=== PATIENT | female | born 1995 | race Caucasian/White ===

== ENCOUNTER 2017-08-09 11:26 | Emergency (ER) | payer OTHER ==
[2017-08-09] MEDS ORDERED: NA CHLORIDE 0.9% 1,000 ML ONE (12:59)
[2017-08-09] MEDS ORDERED: CLINDAMYCIN 900MG/D5W 900 MG/50 ML BAG IV ONE (12:59)
[2017-08-09] MEDS ORDERED: DEXAMETHASONE 10 MG/ML VIAL ONE (13:00)
[2017-08-09] MEDS ORDERED: ONDANSETRON 4 MG/2 ML VIAL ONE (13:01)
[2017-08-09] MEDS ORDERED: MORPHINE 10 MG/ML VIAL ONE (13:01)
[2017-08-09 13:31] LABS: Absolute Lymphocytes (CBC) 1.2 K/uL (0.7-4.9); Absolute Monocytes 0.6 K/uL (0.1-1.3); Absolute Neutrophil 5.2 K/uL (1.8-8.0); Basophils % 0.4 % (0-1.3); Eosinophils % 0.2 % (0-4.4); Hematocrit 42.6 % (36.0-45.0); Lymphocytes % 17.1 % (15.3-44.8); MCH 30.4 pg (27.0-35.0); MCV 88.5 fL (80-100); MPV 9.5 fL (7.6-11.3); Monocytes % 8.8 % (3.3-12.3); RBC Red Blood Cell Count 4.81 M/uL (3.86-4.86)
[2017-08-09 13:34] LABS: Bicarbonate 26 mEq/L (21-31); Glucose Level 98 mg/dL (65-120); Sodium Level 142 mEq/L (135-145)
[2017-08-09 13:37] LABS: ALT/SGPT 16 IU/L (10-60); AST/SGOT 17 IU/L (10-42); Albumin 4.2 g/dL (3.2-5.5); Alkaline Phosphatase 61 IU/L (42-121); BUN Blood Urea Nitrogen 9 mg/dL (6-20); Protein, Total 7.6 g/dL (6.0-8.3)
--- NOTE | 2017-08-09 14:49 | RAD REPORT ---
EXAM DESCRIPTION: CT - Soft Tissue Neck W/Contr CLINICAL HISTORY: Pain COMPARISON: None. TECHNIQUE All CT scans are performed using dose optimization technique as appropriate and may includ e automated exposure control or mA/KV adjustment according to patient size. FINDINGS: The left second mandibular molar demonstrates a large crown erosion as well as periapical lucency compatible with odontogenic infection. There is no definitive evidence of an adjacent odontog enic abscess. However, the surrounding perimandibular tissues are thickened and the fat is effaced al jewel the left floor of the mouth with several perimandibular soft lymph nodes present. Skin thickening and subcutaneous fat reticulation is seen along the left aspect of the jaw. No intrinsic or extrinsic neck mass seen. IMPRESSION: Odontogenic infection involving the left second molar is identified with perimandibular inflammatory changes. An abscess is not discretely identified.
--- NOTE | 2017-08-09 14:54 | ER ---
Nurse's Notes [facility] Name: Miracle Villareal Age: 21 yrs Sex: Female : 1995 Arrival Date: 08/09/2017 Time: 11:27 Bed 9 Private MD: Diagnosis: Dental infection. Facial swelling. Presentation: 08/09 11:31 Presenting complaint: Patient states: " I started having this swelling under my chin ph since Tuesday. I had a bad tooth but I've been on antibiotics but I'm still running a high fever." Swelling noted to underside of chin, pt reports fever TMAX 103, also reports vomiting. Transition of care: patient was not received from another setting of care. Onset of symptoms was August 09, 2017. Initial Sepsis Screen: Does the patient meet any 2 criteria? No. Patient's initial sepsis screen is negative. Does the patient have a suspected source of infection? Yes:. Care prior to arrival: Medication(s) given: Tylenol, 1 gram at 1000. 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 - Social history:: Smoking status: Patient/guardian denies using tobacco. Screenin:30 Abuse screen: Denies threats or abuse. Denies injuries from another. Nutritional aj1 screening: No deficits noted. Tuberculosis screening: No symptoms or risk factors identified. Assessment: 12:30 General: Appears in no apparent distress. uncomfortable, Behavior is calm, cooperative, aj1 appropriate for age. Pain: Complains of pain in neck and left submandibular area Pain does not radiate. Pain currently is 10 out of 10 on a pain scale. Neuro: Level of Consciousness is awake, alert, obeys commands, Oriented to person, place, time, situation, Moves all extremities. Full function Gait is steady, Speech is normal, swelling noted to left jaw area. Cardiovascular: Patient's skin is warm and dry. Respiratory: Airway is patent Respiratory effort is even, unlabored, Respiratory pattern is regular, symmetrical, Breath sounds are clear bilaterally. Denies shortness of breath. GI: No signs and/or symptoms were reported involving the gastrointestinal system. : No signs and/or symptoms were reported regarding the genitourinary system. EENT: swelling to left jaw. Derm: No signs and/or symptoms reported regarding the dermatologic system. Skin is pink, warm \\T\\ dry. normal. Musculoskeletal: Circulation, motion, and sensation intact. 13:31 Reassessment: Patient appears in no apparent distress at this time. No changes from aj1 previously documented assessment. Patient and/or family updated on plan of care and expected duration. Pain level reassessed. Patient is alert, oriented x 3, equal unlabored respirations, skin warm/dry/pink. 14:22 Reassessment: Patient appears in no apparent distress at this time. No changes from aj1 previously documented assessment. Patient and/or family updated on plan of care and expected duration. Pain level reassessed. Patient is alert, oriented x 3, equal unlabored respirations, skin warm/dry/pink. Vital Signs: 11:35 BP 116 / 98; Pulse 103; Resp 18; Temp 98.7(O); Pulse Ox 98% on R/A; Weight 74.84 kg; ph Height 5 ft. 7 in. (170.18 cm); Pain 8/10; 13:32 BP 113 / 80; Pulse 67; Resp 18; Pulse Ox 98% on R/A; aj1 14:22 BP 109 / 81; Pulse 59; Resp 18; Pulse Ox 100% on R/A; aj1 11:35 Body Mass Index 25.84 (74.84 kg, 170.18 cm) ph ED Course: 11:27 Patient arrived in ED. as 11:34 Triage completed. ph 11:35 Arm band placed on. ph 12:05 Adni Salinas MD is Attending Physician. ps1 12:30 Carina Mccauley, ANGIE is Primary Nurse. aj1 12:30 Patient has correct armband on for positive identification. Bed in low position. Call aj1 light in reach. 12:30 No provider procedures requiring assistance completed. aj1 13:00 Inserted saline lock: 22 gauge in right antecubital area, using aseptic technique. aj1 Blood collected. 14:10 CT completed. Patient tolerated procedure well. Patient moved to CT via wheelchair. sj Patient moved back from CT. 14:10 CT Soft Tissue Neck W/contr In Process Unspecified. EDMS 14:53 Miguel Dow DDS is Referral Physician. ps1 Administered Medications: 13:14 Drug: Decadron - Dexamethasone 10 mg Route: IVP; Site: right antecubital; aj1 15:07 Follow up: Response: No adverse reaction aj1 13:15 Drug: morphine 4 mg Route: IVP; Site: right antecubital; aj1 15:06 Follow up: Response: No adverse reaction aj1 13:15 Drug: Zofran 4 mg Route: IVP; Site: right antecubital; aj1 15:06 Follow up: Response: No adverse reaction aj1 13:16 Drug: Clindamycin 900 mg Route: IVPB; Infused Over: 30 mins; Site: right antecubital; aj1 15:06 Follow up: IV Status: Completed infusion; IV Intake: 50ml aj1 13:16 Drug: NS 0.9% 1000 ml Route: IV; Rate: 1 bolus; Site: right antecubital; aj1 15:06 Follow up: IV Status: Completed infusion; IV Intake: 1000ml aj1 15:07 Drug: TORadol 30 mg Route: IVP; Site: right antecubital; aj1 Intake: 15:06 IV: 50ml; Total: 50ml. aj1 15:06 IV: 1000ml; Total: 1050ml. aj1 Outcome: 14:53 Discharge ordered by . ps1 17:07 Patient left the ED. dm5 Signatures: Dispatcher [employer] EDPR Carina Mccauley RN RN aj1 Zulma Shankar RN RN dm5 Alberta Alarcon Amelia as Hall, Patricia, RN RN Andi Salinas MD MD ps1 Corrections: (The following items were deleted from the chart) 13:30 13:27 General: Appears in no apparent distress. uncomfortable, Behavior is calm, aj1 cooperative, appropriate for age, aj1 13:30 13:27 Pain: Complains of pain in neck and left submandibular area Pain does not aj1 radiate. Pain currently is 10 out of 10 on a pain scale. aj1 13:30 13:27 Neuro: Level of Consciousness is awake, alert, obeys commands, Oriented to aj1 person, place, time, situation, Moves all extremities. Full function Gait is steady, Speech is normal, swelling noted to left jaw area. aj1 : Cardiovascular: Patient's skin is warm and dry. aj1 aj1 : Respiratory: Airway is patent Respiratory effort is even, unlabored, Respiratory aj1 pattern is regular, symmetrical, Breath sounds are clear bilaterally. Denies shortness of breath aj1 : GI: No signs and/or symptoms were reported involving the gastrointestinal system. aj1 aj1 : : No signs and/or symptoms were reported regarding the genitourinary system. aj1aj1 : EENT: swelling to left jaw. aj1 aj1 : Derm: No signs and/or symptoms reported regarding the dermatologic system. Skin aj1 is pink, warm \\T\\ dry. normal, aj1 : Musculoskeletal: Circulation, motion, and sensation intact. aj1 aj1
--- NOTE | 2017-08-09 14:54 | EDPHYS ---
Physician Documentation [facility] Name: Miracle Villareal Age: 21 yrs Sex: Female : 1995 Arrival Date: 08/09/2017 Time: 11:27 Bed 9 Private MD: ED Physician Andi Salinas HPI: 08/09 12:31 This 21 yrs old Female presents to ER via Ambulatory with complaints of Neck ps1 Swelling. 12:31 The patient or guardian complains of hx of left molar pain. on Augmentin for ps1 previously. Now increased pain, swelling, in left submandibular space. Additionally has fever, difficulty eating, and nausea. Pain moderate. No remitting or exacerbating factors. Feels like it is getting worse.. 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 - Social history:: Smoking status: Patient/guardian denies using tobacco. ROS: 12:31 Constitutional: Negative for fever, chills, and weight loss, Eyes: Negative for injury, ps1 pain, redness, and discharge. 12:31 Cardiovascular: Negative for chest pain, palpitations, and edema, Respiratory: Negative for shortness of breath, cough, wheezing, and pleuritic chest pain, Abdomen/GI: Negative for abdominal pain, nausea, vomiting, diarrhea, and constipation, Back: Negative for injury and pain, MS/Extremity: Negative for injury and deformity, Skin: Negative for injury, rash, and discoloration, Neuro: Negative for headache, weakness, numbness, tingling, and seizure. 12:31 ENT: Positive for sore throat, Teeth pain 12:31 Neck: Positive for mass, swelling, swollen nodes, tenderness, of the left submandibular area. Exam: 12:31 Constitutional: This is a well developed, well nourished patient who is awake, alert, ps1 and in no acute distress. Head/Face: Normocephalic, atraumatic. Eyes: Pupils equal round and reactive to light, extra-ocular motions intact. Lids and lashes normal. Conjunctiva and sclera are non-icteric and not injected. Chest/axilla: Normal chest wall appearance and motion. Nontender with no deformity. No lesions are appreciated. Cardiovascular: Regular rate and rhythm. No gallops, murmurs, or rubs. Normal PMI, no JVD. No pulse deficits. Respiratory: Lungs have equal breath sounds bilaterally, clear to auscultation and percussion. No rales, rhonchi or wheezes noted. No increased work of breathing, no retractions or nasal flaring. Abdomen/GI: Soft, non-tender, with normal bowel sounds. No distension or tympany. No guarding or rebound. No evidence of tenderness throughout. MS/ Extremity: Pulses equal, no cyanosis. Neurovascular intact. Full, normal range of motion. Neuro: Awake and alert, GCS 15, oriented to person, place, time, and situation. Cranial nerves II-XII grossly intact. Sensory grossly intact. Psych: Awake, alert, with orientation to person, place and time. Behavior, mood, and affect are within normal limits. 12:31 ENT: Mouth: is normal, Posterior pharynx: peritonsillar mass, is not appreciated. 12:31 Neck: External neck: mass, of the left submandibular area, swelling, tenderness. Vital Signs: 11:35 BP 116 / 98; Pulse 103; Resp 18; Temp 98.7(O); Pulse Ox 98% on R/A; Weight 74.84 kg; ph Height 5 ft. 7 in. (170.18 cm); Pain 8/10; 13:32 BP 113 / 80; Pulse 67; Resp 18; Pulse Ox 98% on R/A; aj1 14:22 BP 109 / 81; Pulse 59; Resp 18; Pulse Ox 100% on R/A; aj1 11:35 Body Mass Index 25.84 (74.84 kg, 170.18 cm) ph MDM: 12:28 Patient medically screened. ps1 14:55 Data reviewed: vital signs, nurses notes, lab test result(s), radiologic studies. ED ps1 course: no definite abscess. Home with Clinda, t3, Medrol, Anaprox, and Zofran. Follow up with dentist BARRINGTON. Stable. . 08/09 12:26 Order name: CBC with Diff; Complete Time: 13:40 ps1 08/09 12:26 Order name: CMP; Complete Time: 13:38 ps1 08/09 12:26 Order name: Lactate; Complete Time: 13:38 ps1 08/09 12:26 Order name: CT Soft Tissue Neck W/contr; Complete Time: 14:51 ps1 Administered Medications: 13:14 Drug: Decadron - Dexamethasone 10 mg Route: IVP; Site: right antecubital; aj1 15:07 Follow up: Response: No adverse reaction aj1 13:15 Drug: morphine 4 mg Route: IVP; Site: right antecubital; aj1 15:06 Follow up: Response: No adverse reaction aj1 13:15 Drug: Zofran 4 mg Route: IVP; Site: right antecubital; aj1 15:06 Follow up: Response: No adverse reaction aj1 13:16 Drug: Clindamycin 900 mg Route: IVPB; Infused Over: 30 mins; Site: right antecubital; aj1 15:06 Follow up: IV Status: Completed infusion; IV Intake: 50ml aj1 13:16 Drug: NS 0.9% 1000 ml Route: IV; Rate: 1 bolus; Site: right antecubital; aj1 15:06 Follow up: IV Status: Completed infusion; IV Intake: 1000ml aj1 15:07 Drug: TORadol 30 mg Route: IVP; Site: right antecubital; aj1 Disposition: 08/09/17 14:53 Discharged to Home. Impression: Dental infection. Facial swelling. . - Condition is Stable. - Discharge Instructions: Dental Pain. - Prescriptions for chlorhexidine gluconate 0.12 % Mucous Membrane mouthwash - place 15 milliliter by MUCOUS MEMBRANE route 2 times per day after brushing teeth, swish in mouth for 30 seconds then spit out; 300 milliliter. Anaprox 275 mg Oral Tablet - take 1 tablet by ORAL route every 8 hours As needed; 30 tablet. Clindamycin HCl 300 mg Oral Capsule - take 1 capsule by ORAL route every 6 hours for 10 days; 40 capsule. Tylenol- Codeine #3 300-30 mg Oral Tablet - take 2 tablet by ORAL route every 6 hours As needed; 30 tablet. Zofran 4 mg Oral Tablet - take 1 tablet by ORAL route every 12 hours As needed; 20 tablet. Medrol ([place]) 4 mg Oral Tablets, Dose Pack - take 1 tablet by ORAL route as directed - follow package instructions; 1 packet. - Work release form, Medication Reconciliation Form, Thank You Letter, Antibiotic Education, Prescription Opioid Use form. - Follow up: Emergency Department; When: As needed; Reason: Fever > 102 F, Trouble breathing, Worsening of condition. Follow up: Miguel Dow DDS; When: 1 week; Reason: Recheck today's complaints. - Problem is an ongoing problem. - Symptoms have worsened. Signatures: Dispatcher [employer] Carina Kiser RN RN aj1 Zulma Shankar RN RN dm5 Maria Fernanda Tarango RN RN ph Andi Salinas MD MD ps1
[2017-08-09] MEDS ORDERED: KETOROLAC 30 MG/ML INJ ONE (15:02)
[2017-08-09 17:30] VITALS: TEMP 98.7
[2017-08-09 17:32] VITALS: BP 109/81; O2SAT 100
== END 2017-08-09 17:07 | disposition home or self-care (01) ==
LOC: ER 11:26
DX: K04.7 Periapical abscess without sinus (principal); R22.9 Localized swelling, mass and lump, unspecified; Z88.5 Allergy status to narcotic agent
CPT/HCPCS: 36415; 70491; 80053; 83605; 85025; 96361; 96365; 96366; 96375; 99284; J1100; J2405; J7030; Q9967

== ENCOUNTER 2019-02-20 11:51 | Day surgery (SDC) | payer BC ==
[2019-02-20] MEDS ORDERED: Ringers Lactate 1,000 ML IV ONE (12:05)
[2019-02-20 12:26] LABS: Absolute Lymphocytes (CBC) 2.1 K/uL (0.7-4.9); Hematocrit 39.7 % (36.0-45.0); Lymphocytes % 30.1 % (15.3-44.8); MPV 8.8 fL (7.6-11.3)
[2019-02-20] MEDS ORDERED: FENTANYL CITR 100 MCG/2 ML ONE ×2 (13:29→14:34)
[2019-02-20] MEDS ORDERED: MIDAZOLAM HCL 2 MG/2 ML INJ ONE (13:29)
[2019-02-20] MEDS ORDERED: PROPOFOL 200 MG/20 ML VIAL IV ONE (13:29)
[2019-02-20] MEDS ORDERED: LIDOCAINE 1% MPF 5 ML VIAL ONE (13:30)
[2019-02-20] MEDS ORDERED: ROCURONIUM 50 MG/5 ML VIAL IV ONE (13:30)
[2019-02-20] MEDS ORDERED: BUPIVACAINE 0.25% PF 10 ML VIAL ONE (13:46)
[2019-02-20] MEDS ORDERED: KETOROLAC 30 MG/ML INJ ONE (14:46)
[2019-02-20] MEDS ORDERED: ONDANSETRON 4 MG/2 ML VIAL ONE ×2 (14:47→18:05)
[2019-02-20] MEDS ORDERED: dexAMETHasone 4 MG/ML VIAL ONE (14:47)
[2019-02-20] MEDS ORDERED: GLYCOPYRROLATE 0.2 MG/ML SYR ONE (14:52)
[2019-02-20] MEDS ORDERED: NEOSTIGMINE 1 MG/ML -10 ML VIAL ONE (14:52)
[2019-02-20] MEDS: HYDROMORPHONE HCL 1 MG/ML INJ ONE ×4 (15:49→16:11)
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
[2019-02-20] MEDS ORDERED: HYDROCODONE/APAP 5/325 MG TAB ONE (16:54)
[2019-02-20 17:03] VITALS: TEMP 97.4
[2019-02-20] MEDS ORDERED: IBUPROFEN 200 MG TAB PO ONE (18:00)
[2019-02-20] MEDS ORDERED: IBUPROFEN 400 MG TAB ONE (18:00)
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
[2019-02-20 18:41] VITALS: BP 106/64; O2SAT 97
--- NOTE | 2019-02-21 02:07 | OP ---
Date of Procedure: 02/20/2019 Surgeon: Kya Cardenas MD Negative Cleaner: Jimena Jonas M.D. Preoperative Diagnosis: Pelvic pain and left ovarian cyst, possible torsion. Postoperative Diagnoses: Pelvic pain, left ovarian cyst. No evidence of any acute torsion. Specimens: Left ovarian cyst. Complications: No complications. Drains: No drains. Condition: The patient's condition is stable. Indications: The patient was consented and taken to the OR for a diagnostic laparoscopy to rule out torsion, taken back to the OR. No antibiotics were indicated. Patient was placed in a supine fashio n on the operating table. General anesthesia given and placed in the dorsal lithotomy position. Arm s were tucked by the side. Abdomen, vulva, vagina, and perineum were prepped and draped in a sterile fashion. Adnexal masses palpable on the left side, the right was unremarkable. Speculum was placed to expose the cervix. Anterior lip grasped with 2 Allis clamps. Attempt was mad e to place the diagnostic uterine manipulator, but this was not possible because the uterus appeared to be retroflexed and it was somewhat difficult to advance the manipulator. I did not also have dila tors, so later on after the scope was placed, came back down and used the cervical dilators to open u p to 14-Bulgarian and then was I was able to slide the uterine manipulator in there and this was fixed i n place. The bladder was drained. No Good was left in place prior to the procedure. A 1 cm infraumbilical incision was made with a scalpel. The old scar for the appendectomy was used a nd scar was taken down. Fascia was incised, picked up with 2 Kochers on each side and stitches with 0 Vicryl were placed on each side. Abelino introduced after entering the peritoneal cavity bluntly an d placing S retractors. Once the site of entry was checked through the Abelino and was unremarkable, a 5 mm left lower quadrant and 5 mm suprapubic ports were placed under direct vision. Then, once the uterine manipulator was fixed in place, the surgery was started. The right ovary and tube completel y unremarkable, left tube completely unremarkable. No evidence of any endometriosis after systematic examination of the pelvic, peritoneum, and the anterior cul-de-sac, posterior cul-de-sac, bladder wa lls and suspected lesion on the right lateral wall. However, on visualizing this with a 30-degree le ns, I did not see any. Then on the left ovary, there was a 5-6 cm cyst, which appeared to be suspici ous for teratoma, but once a monopolar needle was used to make at least a 5 cm incision on the ovaria n capsule. The cyst cavity was entered, the fluid was drained, it was clear and yellow. The cyst wal l was thin, it was completely removed without any problems. Once the cyst wall was removed, a 3-0 Mo nocryl stitch was placed in a buried [id number] fashion and the tails cut very short. Interceed was wrapped around this and once this was done, no other etiology was found in the pelvic c avity, so the scope was removed. The appendix was absent. Ports were removed under direct vision an d injecting Marcaine there and then fascia of the port. Once the fascia was closed with 0 Vicryl sut ures, then this was injected with Marcaine as well as subcutaneous tissues and simple 4-0 Vicryl inte rrupted were placed to close the skin incisions. The manipulator was removed. There was no Good. Instrument, needle, and sponge counts were done and were correct at the end of the case. The patient tolerated the procedure well. She will follow up with me in 3 weeks. CLINT/KATHE Voice ID: [id number] Report ID: [id number]
--- OUTSIDE RECORDS SUMMARY | 2019-03-04 15:17 | XMS REPORT ---
:1995 [facility] Address [address] [place] [address] [place] [id number] Care Team Providers Name Role Phone Unavailable Unavailable Unavailable Problems This patient has no known problems. Allergies, Adverse Reactions, Alerts This patient has no known allergies or adverse reactions. Medications This patient has no known medications.
== END 2019-02-20 18:41 | disposition home or self-care (01) ==
LOC: OR 11:51
PROVIDERS: ATTEND Specialist
PROC: 0UB14ZZ Excision of Left Ovary, Percutaneous Endoscopic Approach (ICD-10-PCS; principal; 2019-02-20 13:30)
DX: N83.02 Follicular cyst of left ovary (principal); R10.2 Pelvic and perineal pain; Z88.6 Allergy status to analgesic agent
CPT/HCPCS: 85025; 36415; 81025; 88305; 58662; J2704; J2710; J2250; J3010 ×2; J1170 ×2; J7120; J2405 ×2

== ENCOUNTER 2019-10-23 21:12 | Emergency (ER) | payer BC ==
--- OUTSIDE RECORDS SUMMARY | 2019-10-23 21:43 | XMS REPORT | Summary of Care ---
:1995 Author Organization [facility] Address [address] [place] [address] Care Team Providers Name Role Phone Pcp, Patient Does Not Have A Primary Care Provider +1-000-00 0-0000 Reason for Visit Reason Comments Exposure asymptomatic- covid Encounter Details Date Type Department Care Team Description 10/16/2019 Laboratory Only [facility] Family Rhonda, JAMES Torres [address] [place] [address] [place] [address] Suspected Covid-19 [facility] Lab, Adc Fam Pob I Virus Infection [address] [place] [address] (Primary D x) [place] [address] Allergies Not on Filedocumented as of this encounter (statuses as of 10/16/2019) Medications Not on filedocumented as of this encounter (statuses as of 10/16/2019) Active Problems Not on filedocumented as of this encounter (statuses as of 10/16/2019) Social History Tobacco Use Types Packs/Day Years Used Date Never Assessed Sex Assigned at Date Recorded Not on file Job Start Date Occupation Industry Not on file Not on file Not on file Travel History Travel Start Travel End No recent travel history available. COVID-19 Exposure Response Date Recorded In the last month, have you been in contact with Yes 10/16/2019 3:21 PM CDT someone who was confirmed or suspected to have Coronavirus / COVID-19? documented as of this encounter Last Filed Vital Signs Not on filedocumented in this encounter Plan of Treatment Name Type Priority Associated Diagnoses Order S chedule COVID-19 (PCR MOLECULAR LAB Routine Suspected Covid-1 9 Virus Expected: 10/16/2019, TESTING) Infection Expires: 2020 Health Maintenance Due Date Last Done Comments VARICELLA VACCINES (1 of 2 - 10/12/1995 2-dose childhood series) DTaP,Tdap,and Td Vaccines (1 - 2005 Tdap) HPV VACCINES (1 - Female 2-dose 2005 series) Depression Screening 2006 PAP SMEAR 10/12/2015 INFLUENZA VACCINE (Season Ended) 2019 PNEUMOCOCCAL 0-64 YEARS COMBINED Aged Out No longer eligible based on SERIES patient's age to complete this topic documented as of this encounter Results Not on filedocumented in this encounter Visit Diagnoses Diagnosis Suspected Covid-19 Virus Infection - Julianna nicole documented in this encounter Insurance Payer Benefit Plan Subscriber ID Effective Dates Phone Address Type / Group [facility] [id number] 2018-[place] [phone] [address] PPO/POS [facility] [id number] [place] [address] documented as of this encounter
--- OUTSIDE RECORDS SUMMARY | 2019-10-23 21:43 | XMS REPORT | Summary of Care ---
:1995 Author Organization [facility] Address [address] [place] [address] Care Team Providers Name Role Phone Pcp, Patient Does Not Have A Primary Care Provider +1-000-00 0-0000 Reason for Visit Reason Comments UPPER RESPIRATORY INFECTION Encounter Details Date Type Department Care Team Description 10/18/2019 Telephone [facility] [employer] Family Pob1, Acute Care UPPER RESPIRATORY Medicine - [facility] INFECTION [address] [place] [address] Allergies Not on Filedocumented as of this encounter (statuses as of 10/18/2019) Medications Not on filedocumented as of this encounter (statuses as of 10/18/2019) Active Problems Not on filedocumented as of this encounter (statuses as of 10/18/2019) Social History Tobacco Use Types Packs/Day Years [...] filedocumented in this encounter Plan of Treatment Health Maintenance Due Date Last Done Comments [...] Results Not on filedocumented in this encounter Insurance Payer Benefit Plan Subscriber ID Effective Dates Phone Address Type / Group [facility] [id number] 2018-[place] [phone] [address] PPO/POS [facility] [id number] [place] [address] documented as of this encounter
--- OUTSIDE RECORDS SUMMARY | 2019-10-23 21:43 | XMS REPORT | Continuity of Care Document ---
:1995 Author Organization [facility] t Address [address] [place] [address] Care Team Providers Name Role Phone Pob1, Care Clinic Attending Clinician Unavailable Lab, Fam Pob I Attending Clinician Unavailable Problems This patient has no known problems. Allergies, Adverse Reactions, Alerts This patient has no known allergies or adverse reactions. Medications This patient has no known medications. Procedures This patient has no known procedures. Encounters Start End Encounter Admission Attending Care Care Encounter Source Date/Time Date/Time Type Type Clinicians Facility Department ID 2019-10-18 2019-10-18 Telephone Pob1, Acute [facility] [id number] 00:00:00 00:00:00 Care [facility] [id number] [place] [id number] Professio [phone] nal [address] 2019-10-16 2019-10-16 Laboratory Lab, [facility] [id number] 15:20:01 15:40:01 Only Fam Pob I Health [id number] [place] [id number] Professio [phone] [address]al [address] Results This patient has no known results.
--- OUTSIDE RECORDS SUMMARY | 2019-10-23 21:43 | XMS REPORT | Summary of Care ---
:1995 Author Organization [facility] Address [address] [place] [address] Care Team Providers Name Role Phone Pcp, Patient Does Not Have A Primary Care Provider +1-000-00 0-0000 Reason for Visit Reason Comments Exposure asymptomatic- covid Encounter Details Date Type Department Care Team Description 10/16/2019 Laboratory Only [facility] Family Rhonda, JAMES Torres [address] [place] [address] [place] [address] Suspected Covid-19 [facility] Lab, Adc Fam Pob I Virus Infection [address] [place] [address] (Primary D x) [place] [address] Allergies Not on Filedocumented as [...] Effective Dates Phone Address Type / Group [facility] [id number] 2018-[place] [phone] [address] PPO/POS [facility] [id number] [place] [address] documented as of this encounter
[2019-10-23] MEDS ORDERED: METOCLOPRAMIDE 10 MG/2mL INJ ONE (22:20)
[2019-10-23] MEDS ORDERED: DIPHENHYDRAMINE 50 MG/ML VIAL ONE (22:20)
[2019-10-23] MEDS ORDERED: NA CHLORIDE 0.9% 1,000 ML ONE (22:20)
--- NOTE | 2019-10-23 23:25 | EDPHYS ---
Physician Documentation [facility] Name: Miracle Stone Age: 24 yrs Sex: Female : 1995 Arrival Date: 10/23/2019 Time: 21:15 Bed 24 Private MD: ED Physician Hakeem Park HPI: 10/22 21:48 This 24 yrs old Female presents to ER via Ambulatory with complaints of Fever.jr8 21:48 The patient reports fever, not measured (subjective). Onset: The symptoms/episode jr8 began/occurred acutely, 2 day(s) ago. Modifying factors: The patient has had contact with sick husbands family. Associated signs and symptoms: Pertinent positives: arthralgias, chills, cough, headache. Severity of symptoms: At their worst the symptoms were moderate in the emergency department the symptoms are unchanged. The patient has not experienced similar symptoms in the past. The patient has not recently seen a physician. Historical: - Allergies: 21:25 Tramadol HCl; ll1 - PSHx: 21:25 Appendectomy; ; Knee surgery; ll1 - Immunization history:: Adult Immunizations up to date. - Social history:: Patient uses alcohol, only on a social basis. Patient/guardian denies using street drugs, tobacco products, Smoking status: Patient denies any tobacco usage or history of. ROS: 21:48 Eyes: Negative for injury, pain, redness, and discharge, ENT: Negative for injury, jr8 pain, and discharge, Neck: Negative for injury, pain, and swelling, Cardiovascular: Negative for chest pain, palpitations, and edema, Respiratory: Negative for shortness of breath, cough, wheezing, and pleuritic chest pain, Abdomen/GI: Negative for abdominal pain, nausea, vomiting, diarrhea, and constipation, Back: Negative for injury and pain, MS/Extremity: Negative for injury and deformity, Skin: Negative for injury, rash, and discoloration. 21:48 Constitutional: Positive for body aches, chills, fatigue, fever. 21:48 Neuro: Positive for headache. Exam: 21:48 Eyes: Pupils equal round and reactive to light, extra-ocular motions intact. Lids and jr8 lashes normal. Conjunctiva and sclera are non-icteric and not injected. Cornea within normal limits. Periorbital areas with no swelling, redness, or edema. ENT: Nares patent. No nasal discharge, no septal abnormalities noted. Tympanic membranes are normal and external auditory canals are clear. Oropharynx with no redness, swelling, or masses, exudates, or evidence of obstruction, uvula midline. Mucous membranes moist. Neck: Trachea midline, no thyromegaly or masses palpated, and no cervical lymphadenopathy. Supple, full range of motion without nuchal rigidity, or vertebral point tenderness. No Meningismus. Cardiovascular: Regular rate and rhythm with a normal S1 and S2. No gallops, murmurs, or rubs. Normal PMI, no JVD. No pulse deficits. Respiratory: Lungs have equal breath sounds bilaterally, clear to auscultation and percussion. No rales, rhonchi or wheezes noted. No increased work of breathing, no retractions or nasal flaring. Abdomen/GI: Soft, non-tender, with normal bowel sounds. No distension or tympany. No guarding or rebound. No evidence of tenderness throughout. Back: No spinal tenderness. No costovertebral tenderness. Full range of motion. Skin: Warm, dry with normal turgor. Normal color with no rashes, no lesions, and no evidence of cellulitis. MS/ Extremity: Pulses equal, no cyanosis. Neurovascular intact. Full, normal range of motion. Neuro: Awake and alert, GCS 15, oriented to person, place, time, and situation. Cranial nerves II-XII grossly intact. Motor strength 5/5 in all extremities. Sensory grossly intact. Cerebellar exam normal. Normal gait. Vital Signs: 21:23 BP 161 / 92; Pulse 70; Resp 18; Temp 98.4; Pulse Ox 99% ; ll1 23:40 BP 107 / 65; Pulse 68; Resp 18; Temp 98.2; Pulse Ox 99% ; ea MDM: 21:26 Patient medically screened. jr8 23:23 Data reviewed: vital signs, nurses notes, and as a result, I will discharge patient. jr8 Data interpreted: Pulse oximetry: on room air is 99 %. Interpretation: normal. Counseling: I had a detailed discussion with the patient and/or guardian regarding: the historical points, exam findings, and any diagnostic results supporting the discharge/admit diagnosis, the need for outpatient follow up, a family practitioner, to return to the emergency department if symptoms worsen or persist or if there are any questions or concerns that arise at home. Response to treatment: the patient's symptoms have markedly improved after treatment, patient is well hydrated. ED course: Pain markedly decreased. Will send home to continue to isolate. Knows to wait until swab returns. 10/22 21:46 Order name: COVID-19 jr8 10/22 21:46 Order name: IV; Complete Time: 22:08 jr8 Administered Medications: 22:28 Drug: NS 0.9% 1000 ml Route: IV; Rate: 1000 ml; Site: right antecubital; ea 23:53 Follow up: Response: No adverse reaction; IV Status: Completed infusion; IV Intake: ea 1000ml 22:28 Drug: Reglan 10 mg Route: IVP; Site: right antecubital; ea 23:53 Follow up: Response: No adverse reaction ea 22:28 Drug: Benadryl 25 mg Route: IVP; Site: right antecubital; ea 23:53 Follow up: Response: No adverse reaction ea 23:46 Drug: TORadol - Ketorolac 15 mg Route: IVP; Site: right antecubital; ea 23:53 Follow up: Response: Medication administered at discharge. ea 23:46 Drug: Decadron - Dexamethasone 10 mg Route: IVP; Site: right antecubital; ea 23:53 Follow up: Response: Medication administered at discharge. ea Disposition: 10/23 01:20 Co-signature as Attending Physician, Hakeem Park MD. [email or web address] Disposition: 10/23/19 23:24 Discharged to Home. Impression: Viral infection, unspecified, Headache. - Condition is Stable. - Discharge Instructions: COVID-19. - Medication Reconciliation Form, Thank You Letter, Antibiotic Education, Prescription Opioid Use form. - Follow up: Private Physician; When: As needed; Reason: Recheck today's complaints, Continuance of care, Re-evaluation by your physician. - Problem is new. - Symptoms have improved. Signatures: Dispatcher [employer] EDMS Az Mckeon PA PA jr8 Roz Stout RN RN ea Lewis, Lynsay, RN RN [facility] Hakeem Park MD MD [email or web address] Corrections: (The following items were deleted from the chart) 10/22 23:55 23:24 10/23/2019 23:24 Discharged to Home. Impression: Viral infection, unspecified; ea Headache. Condition is Stable. Forms are Medication Reconciliation Form, Thank You Letter, Antibiotic Education, Prescription Opioid Use. Follow up: Private Physician; When: As needed; Reason: Recheck today's complaints, Continuance of care, Re-evaluation by your physician. Problem is new. Symptoms have improved. jr8
--- NOTE | 2019-10-23 23:25 | ER ---
Nurse's Notes [facility] Name: Miracle Stone Age: 24 yrs Sex: Female : 1995 Arrival Date: 10/23/2019 Time: 21:15 Bed 24 Private MD: Diagnosis: Viral infection, unspecified;Headache Presentation: 10/22 21:23 Chief complaint: Patient states: SRIVASTAVA, fever, diarrhea since Tuesday night. Denies ll1 cough/SOB, but has a little chest pain. Fever up to 101 at home. Coronavirus screen: Surgical mask placed on patient. Patient moved to private room, placed in contact and droplet isolation with eye protection until further assessment. Patient denies a cough. Patient denies shortness of breath or difficulty breathing. Patient reports a measured and/or subjective temperature greater than 100.4F. Patient denies travel on a cruise ship or to a country [facility] currently lists as an affected area. Patient reports contact with known and/or suspected case of COVID-19. Ebola Screen: Patient denies travel to an Ebola-affected area in the 21 days before illness onset. Initial Sepsis Screen: Does the patient meet any 2 criteria? No. Patient's initial sepsis screen is negative. Risk Assessment: Do you want to hurt yourself or someone else? Patient reports no desire to harm self or others. Onset of symptoms was October 21, 2019. 21:23 Method Of Arrival: Ambulatory ll1 21:23 Acuity: MARY LOU 3 ll1 21:24 Ebola Screen: No symptoms or risks identified at this time. ea 21:24 Initial Sepsis Screen: Does the patient meet any 2 criteria? No. Patient's initial ea sepsis screen is negative. Does the patient have a suspected source of infection? No. Patient's initial sepsis screen is negative. Triage Assessment: 21:25 General: Appears in no apparent distress. Behavior is appropriate for age. ea Historical: - Allergies: 21:25 Tramadol HCl; ll1 - PSHx: 21:25 Appendectomy; ; Knee surgery; ll1 - Immunization history:: Adult Immunizations up to date. - Social history:: Patient uses alcohol, only on a social basis. Patient/guardian denies using street drugs, tobacco products, Smoking status: Patient denies any tobacco usage or history of. Screenin:23 Abuse screen: Denies threats or abuse. Nutritional screening: No deficits noted. ea Tuberculosis screening: No symptoms or risk factors identified. Fall Risk None identified. Assessment: 21:24 General: Appears in no apparent distress. Behavior is appropriate for age. Pain: Denies ea pain. Neuro: Level of Consciousness is awake, alert, obeys commands, Oriented to person, place, time, situation. Cardiovascular: Patient's skin is warm and dry. Respiratory: Airway is patent Respiratory effort is even, unlabored, Respiratory pattern is regular, symmetrical. GI: Reports diarrhea. Derm: Skin is pink, warm \T\ dry. 23:55 Reassessment: Patient and/or family updated on plan of care and expected duration. Pain ea level reassessed. Patient is alert, oriented x 3, equal unlabored respirations, skin warm/dry/pink. Discharge instruction given to patient, verbalized the understanding of instruction. Pt left ED ambulatory tolerating well. Vital Signs: 21:23 BP 161 / 92; Pulse 70; Resp 18; Temp 98.4; Pulse Ox 99% ; ll1 23:40 BP 107 / 65; Pulse 68; Resp 18; Temp 98.2; Pulse Ox 99% ; ea ED Course: 21:15 Patient arrived in ED. ag3 21:16 Az Mckeon PA is PHCP. jr8 21:16 Hakeem Park MD is Attending Physician. jr8 21:23 Roz Stout, ANGIE is Primary Nurse. ea 21:23 Arm band placed on right wrist. Patient placed in an exam room, on a stretcher, on ea pulse oximetry. 21:23 Patient has correct armband on for positive identification. Bed in low position. Call ea light in reach. Pulse ox on. NIBP on. 21:25 Triage completed. ll1 22:08 Inserted saline lock: 20 gauge in right antecubital area, using aseptic technique. oe 23:54 No provider procedures requiring assistance completed. IV discontinued, intact, ea bleeding controlled, No redness/swelling at site. Pressure dressing applied. Administered Medications: 22:28 Drug: NS 0.9% 1000 ml Route: IV; Rate: 1000 ml; Site: right antecubital; ea 23:53 Follow up: Response: No adverse reaction; IV Status: Completed infusion; IV Intake: ea 1000ml 22:28 Drug: Reglan 10 mg Route: IVP; Site: right antecubital; ea 23:53 Follow up: Response: No adverse reaction ea 22:28 Drug: Benadryl 25 mg Route: IVP; Site: right antecubital; ea 23:53 Follow up: Response: No adverse reaction ea 23:46 Drug: TORadol - Ketorolac 15 mg Route: IVP; Site: right antecubital; ea 23:53 Follow up: Response: Medication administered at discharge. ea 23:46 Drug: Decadron - Dexamethasone 10 mg Route: IVP; Site: right antecubital; ea 23:53 Follow up: Response: Medication administered at discharge. ea Intake: 23:53 IV: 1000ml; Total: 1000ml. ea Outcome: 23:24 Discharge ordered by . yaw 23:54 Discharged to home ambulatory, with family. ea 23:54 Condition: stable 23:54 Discharge instructions given to patient, Instructed on discharge instructions, follow up and referral plans. Demonstrated understanding of instructions, follow-up care. 23:55 Patient left the ED. ea Addendum: 10/26/2019 12:23 Addendum: Other pt notified of negative COVID-19 swab results. Pt advised to remain in d m5 isolation until symptom free for 3 days and to return to the ED for worsening symptoms. Signatures: Zulma Shankar, RN RN dm5 Az Mckeon PA PA jr8 Shimon Zeng Elena, RN RN ea Gomez, Alice ag3 Lewis, Lynsay, RN RN ll1
[2019-10-23] MEDS ORDERED: dexAMETHasone 10 MG/ML VIAL ONE (23:53)
[2019-10-23] MEDS ORDERED: KETOROLAC 30 MG/ML INJ ONE (23:53)
[2019-10-24 00:35] VITALS: O2SAT 99
[2019-10-24 00:37] VITALS: BP 107/65; TEMP 98.2
== END 2019-10-23 23:55 | disposition home or self-care (01) ==
LOC: ER 21:12
DX: B34.9 Viral infection, unspecified (principal); Z20.828 Contact with and (suspected) exposure to other viral communicable diseases; Z88.5 Allergy status to narcotic agent
CPT/HCPCS: 96361; 96375; 96374; 99283; U0002; J2765; J1200; J1100; J7030

== ENCOUNTER 2021-08-19 21:32 | Observation (INO) | payer OTHER ==
--- OUTSIDE RECORDS SUMMARY | 2021-08-19 21:36 | XMS REPORT | Continuity of Care Document ---
:1995 Author Organization [facility] t Address [address] [place] [address] Care Team Providers Name Role Phone Asked, Pcp Primary Care Physician Unavailable Johny Denton Attending Clinician Unavailable Jeff Ferguson MA Attending Clinician Unavailable Sabas Attending Clinician Unavailable Luke Denton Attending Clinician [phone] Mindy Plasencia Attending Clinician Unavailable Pallavi Eagle Attending Clinician Unavailable Ward Bermudez MD Attending Clinician James Reyes MA Attending Clinician Unavailable FISH Attending Clinician Unavailable Pob1, Care Clinic Attending Clinician Unavailable Lab, Fam Pob I Attending Clinician Unavailable Micky Hairston Attending Clinician Micky CHOI Attending Clinician Unavailable Johny Denton Admitting Clinician Unavailable Sabas Admitting Clinician Unavailable Payers Payer Name Policy Type Policy Number Effective Date Expiration Date Daniel guzmán AETFAIZA (EPO) [id number] 2016 00:00:00 [facility] [id number] 2018 00:00:00 2020 00:00:00 Problems Condition Condition Condition Status Onset Resolution Last Treating Co mments Source Name Details Category Date Date Treatment Clinician Date No known No known Disease Metho di active active st problems problems Hospit a l Allergies, Adverse Reactions, Alerts Allergy Allergy Status Severity Reaction(s) Onset Inactive Treating Comm ents Source Name Type Date Date Clinician tramadol DA Active SV HIVES 2020-1 [facility] [place] tramadol DA Active SV HIVES 2020-0 [facility] 7[facility] [place] tramadol DA Active SV 2020- [facility] 7[facility] [place] Tramadol Propensi Active Other (See Rash and Methodi ty to Comments) 3-[address] adverse 00:00: Hospita reaction 00 l s to drug NO KNOWN Drug Active [facility] ALLERGIE Class ity of S [facility] Family History Family Member Diagnosis Comments Start Date Stop Date Source Natural father No Known Problems [facility] Natural mother Heart disease [facility] Social History Social Habit Start Date Stop Date Quantity Comments Source Exposure to Yes [facility] of SARS-CoV-2 [facility] (event) [place] Tobacco use and 2020-07-31 2020-07-31 Never used [facility] exposure 00:00:00 00:00:00 Alcohol intake 2020-07-31 2020-07-31 Current [facility] 00:00:00 00:00:00 non-drinker of alcohol (finding) Sex Assigned At [birth year] [facility] 00:[facility] 00:00:00 [facility] Smoking Status Start Date Stop Date Source Unknown if ever smoked [facility] Never smoker [facility] al Medications Ordered Filled Start Stop Current Ordering Indication Dosage Frequency Signature Comments Components Source Medication Medication Date Date Medication? Clinician (SIG) Name Name No known No Methodi medications st [facility]ospita l Vital Signs Vital Name Observation Time Observation Value Comments Source Body height 2020-06-20 16:34:00 170.2 cm [facility] Body weight 2020-06-20 16:34:00 90.719 kg [facility] BMI 2020-06-20 16:34:00 31.32 kg/m2 [facility] Procedures Procedure Date / Time Performing Clinician Source Performed [id number] 2021-04-21 00:00:00 FARHAN.03 [facility] [id number] 2021-04-21 00:00:00 FARHAN.03 [facility] SD ARTHROCENTESIS 2020-07-31 23:20:00 Navneet Bermudez [facility] ASPIR&/INJ MAJOR JT/BURSA W/O US MRI KNEE WO CONTRAST 2020-06-23 19:12:16 Navneet Bermudez [facility] RIGHT XR KNEE 3 VW RIGHT 2020-06-20 16:47:04 Navneet Bermudez [facility] EXTERNAL PAP SMEAR 2019-10-03 11:57:00 Doctor Unassigned, [facility] Plan of Care Planned Activity Planned Date Details Comments Source Future Scheduled Test COVID-19 VACCINE (1) [facility] [code = COVID-19 VACCINE (1)] Future Scheduled Test Hepatitis C screening [facility] (procedure) [code = 429370712] Future Scheduled Test Screening for [facility] malignant neoplasm of cervix (procedure) [code = 500382057] Future Scheduled Test INFLUENZA VACCINE [facility] [code = INFLUENZA VACCINE] Encounters Start End Encounter Admission Attending Care Care Encounter Source Date/Time Date/Time Type Type Clinicians Facility Department ID 2021-04-20 Inpatient LUIS Dentno [facility] [id number] [facility] 12:30:00 Jose [id number] [facility] 2021-01-11 Inpatient [facility] [id number] [facility] 18:35:00 [id number] [facility] 2021-07-09 2021-07-09 Pre Visit JOSÉ MIGUEL Ferguson [id number] [facility] 00:00:00 00:00:00 Outreach Hollie MANZANO 350.1.13.10 Heather 4.2.7.2.686 [facility] [id number] [facility] 086 Branch 2021-06-04 2021-06-04 Outpatient [facility]_ PRIV PRIV [id number] [facility] 04:25:00 04:25:00 Janette [id number] Medic al 2021-06-03 2021-06-03 Outpatient [facility]_ PRIV PRIV [id number] [facility] 01:35:00 01:35:00 Janette [id number] Medic al 2021-06-03 2021-06-03 Outpatient Bertin, PRIV PRIV [id number] 00:00:00 00:00:00 Jose [id number] Luke [id number] 2021-06-02 2021-06-02 Outpatient [facility]_ PRIV PRIV 209 [id number] [facility] 12:11:00 12:11:00 Janette [id number] Medic al 2021-05-10 2021-05-10 Outpatient [facility]_ PRIV PRIV 209 [id number] [facility] 01:04:00 01:04:00 Janette [id number] Medic al 2021-05-08 2021-05-08 Outpatient [facility]_ PRIV PRIV 209 [id number] [facility] 06:05:00 06:05:00 Janette [id number] Medic al 2021-05-06 2021-05-06 Outpatient [facility]_ PRIV PRIV 209 [id number] [facility] 12:07:00 12:07:00 Janette [id number] Medic al 2021-05-06 2021-05-06 Outpatient Bertin, PRIV PRIV [id number] 00:00:00 00:00:00 Jose [id number] Edwendi [id number] 2021-04-30 Outpatient [facility]_ PRIV PRIV 209 [id number] [facility] 11:39:00 11:39:00 Janette [id number] Medic al 2021-04-29 2021-04-29 Outpatient [facility]_ PRIV PRIV 209 [id number] [facility] 06:31:00 06:31:00 Janette [id number] Medic al 2021-04-21 2021-04-23 Inpatient KYRA Sorensen OBPP [id number] [facility] 20:20:00 14:43:00 Jose [id number] [facility] 2021-04-21 2021-04-23 Inpatient KYRA SorensenSHIVA OBPP [id number] [facility] 20:20:00 14:43:00 Jose 42 [facility] 2021-04-16 2021-04-16 Outpatient [facility]_ PRIV PRIV 209 [id number] [facility] 02:56:00 02:56:00 Janette [id number] Medic al 2021-04-16 2021-04-16 Outpatient [facility]_ PRIV PRIV 209 [id number] [facility] 02:56:00 02:56:00 Janette [id number] Medic al 2021-04-15 2021-04-15 Outpatient [facility]_ PRIV PRIV 209 [id number] [facility] 10:03:00 10:03:00 Janette [id number] Medic al 2021-04-15 2021-04-15 Outpatient Bertin, PRIV PRIV [id number] 00:00:00 00:00:00 Jose [id number] Luke [id number] 2021-04-14 2021-04-14 Outpatient [facility]_ PRIV PRIV 209 [id number] [facility] 04:19:00 04:19:00 Janette [id number] Medic al 2021-04-13 2021-04-13 Outpatient [facility]_ PRIV PRIV 209 [id number] [facility] 02:52:00 02:52:00 Janette [id number] Medic al 2021-04-13 2021-04-13 Outpatient Bertin, PRIV PRIV [id number] 00:00:00 00:00:00 Jose [id number] Luke [id number] 2021-04-10 2021-04-10 Outpatient [facility]_ PRIV PRIV 209 [id number] [facility] 03:23:00 03:23:00 Janette [id number] Medic al 2021-04-10 2021-04-10 Outpatient [facility]_ PRIV PRIV 209 [id number] [facility] 03:23:00 03:23:00 Janette [id number] Medic al 2021-04-09 2021-04-09 Emergency EM Bertin, [facility] [id number] [facility] 16:53:00 17:15:00 Jose [id number] [facility] 2021-04-09 2021-04-09 Outpatient [facility]_ PRIV PRIV 209 [id number] [facility] 02:49:00 02:49:00 Janette [id number] Medic al 2021-04-09 2021-04-09 Outpatient Bertin, PRIV PRIV [id number] 00:00:00 00:00:00 Jose [id number] Luke [id number] 2021-04-06 2021-04-06 Emergency LUIS Denton, [facility] [id number] [facility] 15:38:00 19:45:00 Jose [id number] [facility] 2021-04-06 2021-04-06 Emergency EL Bertin, [facility] [id number] [facility] 15:38:00 15:38:00 Jose 51 [facility] 2021-03-31 2021-03-31 Outpatient [facility]_ PRIV PRIV 209 [id number] [facility] 11:32:00 11:32:00 Janette [id number] Medic al 2021-03-31 2021-03-31 Outpatient [facility]_ PRIV PRIV 209 [id number] [facility] 11:32:00 11:32:00 Janette [id number] Medic al 2021-03-26 2021-03-26 Outpatient [facility]_ PRIV PRIV 209 [id number] [facility] 12:53:00 12:53:00 Janette [id number] Medic al 2021-03-26 2021-03-26 Outpatient [facility]_ PRIV PRIV 209 [id number] [facility] 03:05:00 03:05:00 Janette [id number] Medic al 2021-03-25 2021-03-25 Outpatient [facility]_ PRIV PRIV 209 [id number] [facility] 11:46:00 11:46:00 Janette [id number] Medic al 2021-03-25 2021-03-25 Outpatient Bertin, PRIV PRIV [id number] 00:00:00 00:00:00 Jose [id number] Luke [id number] 2021-01-11 2021-01-11 Emergency EM Plasencia, [facility] [id number] [facility] 18:35:00 23:48:00 Daria 18 [facility] 2020-10-29 2020-10-29 Emergency EM Russell [facility] [id number] [facility] 12:38:00 15:44:00 To [id number] [facility] 2020-08-21 2020-08-21 Outpatient GC_[facility]_ PRIV PRIV 209 [id number] [facility] 09:50:00 09:50:00 Janette [id number] Medic va 2020-07-31 2020-07-31 [facility], 1.2.840.1 [id number] Methodi 18:11:23 19:29:55 Support Navneet 83193.1.[address] [place] 3.430.2.7 Hospit a .3.766418 l .8 2020-07-31 2020-07-31 Travel 1.2.840.1 1.2.944.743 [id number] Methodi 00:00:00 00:00:[address] 3.430.2.7 0.2.7.3.698 Ho spita .3.874502 084.8 l .8 2020-07-09 2020-07-09 [facility], 1.2.840.1 [id number] Methodi 00:00:00 00:00:[address] [place] 3.430.2.7 Hospit a .3.045270 l .8 2020-06-24 2020-06-24 [facility] 1.2.840.1 [id number] Methodi 18:33:47 19:42:04 Visit Navneet 87705.1.[address] [place] 3.430.2.7 Hospit a .3.236368 l .8 2020-06-23 2020-06-23 [facility], 1.2.840.1 [id number] Methodi 12:12:57 23:59:00 Encounter Navneet [id number] [place] 3.430.2.7 Hospit a .3.102594 l .8 2020-06-23 2020-06-23 Travel 1.2.840.1 1.2.753.923 [id number] Methodi 00:00:00 00:00:[address] 3.430.2.7 0.2.7.3.698 Ho spita .3.785393 084.8 l .8 2020-06-20 2020-06-20 Office Aidan, 1.2.840.1 [id number] Methodi 10:12:57 11:14:20 Visit Navneet 89251.1.[address] [place] 3.430.2.7 Hospit a .3.999548 l .8 2020-06-19 2020-06-19 Travel 1.2.840.1 1.2.393.542 [id number] Methodi 00:00:00 00:00:[address] 3.430.2.7 0.2.7.3.698 Ho spita .3.916964 084.8 l .8 2020-06-17 2020-06-17 Outpatient R ELIZABETH TERRY [facility] [id number] Univers 13:00:00 13:00:00 [id number] [facility] 2020-06-17 2020-06-17 Outpatient R ELIZABETH TERRY [facility] [id number] Univers 13:00:00 13:00:[facility] 2019-10-27 2019-10-27 Outpatient R [facility] [id number] Univers 16:40:00 16:40:00 [id number] [facility] 2019-10-27 2019-10-27 Outpatient R [facility] [id number] Univers 16:40:00 16:40:00 [facility] 2019-10-18 2019-10-18 Telephone Pob1, Acute [facility] 1.2.840.114 [id number] 00:00:00 00:00:00 [facility] 350.1.13.10 [place] 4.2.7.2.686 Professio [phone] [place] [address] Office Building [facility] 2019-10-18 2019-10-18 Telephone Pob1, Acute [place] 1.2.840.114 [id number] Univers 00:00:00 00:00:00 [facility] 350.1.13.10 [facility] [place] 4.2.7.2.686 [place] as Professio [phone] [address] Office Building [facility] 2019-10-16 2019-10-16 Laboratory Lab, [facility] Fam Pob I [facility] 1.2. 840.114 [id number] [facility] 15:20:01 15:40:01 Only Pravin [facility] 350.1.13.10 [facility] [place] 4.2.7.2.686 [place] as Professio [id number] [address] Office Building [facility] 2019-10-16 2019-10-16 Laboratory Lab, [facility] 1.2.840.114 [id number] 15:20:01 15:40:01 Only Fam Pob I Health 350.1.13.10 [place] 4.2.7.2.686 Professio [phone] [place] [address] Office Building [facility] 2019-10-16 2019-10-16 Outpatient R [facility] [id number] Univers 15:20:00 15:20:[id number] [place] [address] 2019-10-16 2019-10-16 Outpatient R STEPH [facility] [id number] Univers 15:20:00 15:20:00 VICKI [facility] Results Test Description Test Time Test Comments Results Result Comments Source SURGICAL 2021-04-27 15:23:00 Test Item Value Reference Range Interpretation Comme nts SURGICAL RUN DATE: (test 04/27/21 [facility] PAGE 1 RUN TIME: 1523 code = Specimen Inquiry RUN USER: INTERFACE SR) PATIENT: GEE OSCAR LOC: VLADIMIR U #: [id number] AGE/SX: ROOM: [facility] RE04/21/21REG DR: Jose Denton MD : 94 BED: A DIS: 04/23/21 STATUS: DIS IN TLOC: SPEC #: [id number] RECD: STATUS: CHADD SASHA #: [id number] DARCIE: 04/21/21- SUBM DR: Jose Denton MD ENTERED: 04/22/21 SP TYPE: SURGICAL [facility] DR: ORDERED: ANATOMIC SPEC/2, SPEC TRACK, [id number] PROCEDURES: [id number] (04/22/21) TISSUES: A. FALLOPIAN TUBE, LEFT B. FALLOPIAN TUBE, RIGHT FINAL DIAGNOSIS A. FALLOPIAN TUBE, LEFT, EXCISION: - Unremarkabl e fallopian tube, completely transected. B. FALLOPIAN TUBE, RIGHT, EXCISION: - Unremarkabl e fallopian tube, completely transected. GROSS DESCRIPTION A). The specimen is received in form will labeled, "left fallopian tube" and consists of amarkedly firm twisted purple omer fallopian tube se gment with attached fimbria measuring 5.5x 0.6 x 0.5 cm. The specimen is sectioned to reveal a pink-t an spongy cut surface. Paratubular cysts are grossly not identified. The specimen is representatively sampled inblock A1-A2 B). The specimen is received in formalin labeled, "right fallopian tube" and c onsists of asingle irregular purple omer twisted rubbery fallopian tube containing attached fimbriam easuring 5.5 x 0.8 x 0 .6 cm. The specimen is sectioned to reveal a pink-omer spongy cutsurface. Discrete para tubular cysts are grossly not identified. The specimen isrepresentatively sampled i n blocks B1-B2 Technical component performed at [id number] , [place], [place] [address] Unless gross only, the diagnosis is based upon microscopic examination.Immunohistochemi stry: This test was developed and its performance characteristicsdetermined by this laboratory. It has n ot been approved nor does it need approval by Angi FDA. Appropriate positive and negative contro ls are reviewed and judged to beacceptable. This laboratory is certified under the Clinical Laborator y ImprovementAmendments (CLIA-88) as qualified to perform high complexity clinical laboratory testing. CONTINUED ON NEXT PAGE RUN DATE: 04/27/21 [facility] PAGE 2 RUN TIME: 1523 Specimen Inquiry RUN USER: INTERFACE SPEC #: [id number] PATIENT: GEE OSCAR #[id number] (Continued) CLINICAL INFORMATION IUP @ 38.3, GHTN, BTL Signed SIGNATURE ON FILE Navid Root [facility] 04/27/21 1523 END OF REPORT HGB [id number] 07:29:00 Test Item Value Reference Range Interpretation Comments HEMOGLOBIN (test code = HGB) 10.1 g/dL 10.1-13.8 N HEMATOCRIT (test code = HCT) 29.3 % 32.5-41.8 L COVID 19 Asymptomatic IH [id number] 17:32:00 Test Item Value Reference Range Interpretation Comments COVID 19 NEGATIVE NEGATIVE This test has b een Asymptomatic IH AG authorize d only for the (test code = detection ofpro teins from COVNONPUIAG) SARS-CoV-2, not for any other viruses orpathogens. N egative results should be treated as presumptive andconfirmed wi th a molecular assay , if necessary for patientmanageme nt. Negative result s do not rule out COVID- 19 andshould not b e used as the sole basis for treatment orpat ient management deci sions, including infec tion controldecision s. Negative result s should be considered i n thecontext of a patient's recent exposure s, history and thepresence of clinical signs and symptoms consis tent withCOVID-19. T his test has not been FD A cleared or approved; th e test hasbeen authori marion by FDA under an Emerge ncy Use Authorization(E UA) for use by laborato colette certified under the CLIA thatmeet the re quirements to perform mode rate, high or waivedcomple xity tests. This flory t is authorized for use at thePoint of Car e (POC), i.e., in patien t care settingsoperati ng under a CLIA Certificat e of Waiver, Certifi chadd ofCompliance, o r Certificate of Accreditation. This test is only authori zejason for the duration of thedeclaration that circumstances e xist justifying theauthorizatio n of emergency use o f in vitro diagnostic test sfor detection and/o r diagnosis of CO VID-19 under Wjbgjqa88 4(b)(1) of the Act, 21 U.S .C. 360bbb-3(b)(1), unless theauthorizatio n is terminated or r evoked sooner. AG HEPATITIS B [id number] 16:24:00 Test Item Value Reference Range Interpretation Comments AG HEPATITIS B SURFACE (test code NONREACTIVE NONREACTIVE = HBSAG) : *AB [id number] 16:24:00 Test Item Value Reference Range Interpretation Comments AB TREPONEMA (test code = TREPAB) NONREACTIVE NONREACTIVE : *AB HIV 1 16:24:00 Test Item Value Reference Range Interpretation Comments AB HIV 1 2 (test NONREACTIVE NONREACTIVE Done by [facility] [id number]) 4th Gen HIV Ag/Ab Combo Screen : *CBC W/AUTO [id number] 14:51:00 Test Item Value Reference Range Interpretation Comments WHITE BLOOD CELL (test code = WBC) 6.8 K/mm3 6.5-12.3 N RED BLOOD CELL (test code = RBC) 3.43 M/mm3 3.51-4.69 L HEMOGLOBIN (test code = HGB) 10.7 g/dL 10.1-13.8 N HEMATOCRIT (test code = HCT) 31.4 % 32.5-41.8 L MEAN CELL VOLUME (test code = MCV) 91.5 fL 84.6-96.6 N MEAN CELL HGB (test code = MCH) 31.2 pg 27.3-33.9 N MEAN CELL HGB CONCETRATION (test 34.1 gm/dL 32.0-34.2 N code = MCHC) RED CELL DISTRIBUTION WIDTH (test 13.3 % 12.2-16.3 N code = RDW) PLATELET COUNT (test code = PLT) 193 K/mm3 134-363 N MEAN PLATELET VOLUME (test code = 11.4 fL 9.2-12.7 N MPV) NEUTROPHIL % (test code = NT%) 70.6 % 57.9-77.3 N LYMPHOCYTE % (test code = LY%) 20.1 % 14.5-29.7 N MONOCYTE % (test code = MO%) 7.9 % 3.6-10.2 N EOSINOPHIL % (test code = EO%) 0.6 % 0.0-3.0 N BASOPHIL % (test code = BA%) 0.4 % 0.1-0.9 N NEUTROPHIL # (test code = NT#) 4.8 K/mm3 LYMPHOCYTE # (test code = LY#) 1.4 K/mm3 MONOCYTE # (test code = MO#) 0.5 K/mm3 EOSINOPHIL # (test code = EO#) 0.04 K/mm3 BASOPHIL # (test code = BA#) 0.0 K/mm3 RBC MORPHOLOGY REQUIRED (test code NORMAL NORMAL = RBCM) PLATELET MORPHOLOGY REQUIRED (test NORMAL NORMAL code = PLTMR) COMPREHENSIVE METABOLIC [id number] 17:49:00 Test Item Value Reference Range Interpretation Comments SODIUM (test code = NA) 141 mEq/L 135-145 N POTASSIUM (test code = K) 3.7 mEq/L 3.5-5.0 N CHLORIDE (test code = CL) 107 mEq/L 100-115 N CARBON DIOXIDE (test code = CO2) 24 mEq/L 22-31 N ANION GAP (test code = GAP) 13.30 10-20 N GLUCOSE (test code = GLU) 77 mg/dL 65-110 N BLOOD UREA NITROGEN (test code = 4 mg/dL 7-18 L BUN) GLOMERULAR FILTRATION RATE (test 121 ml/min >60 N code = GFR) CREATININE (test code = CREAT) 0.6 mg/dL 0.5-1.0 N TOTAL PROTEIN (test code = PROT) 5.7 gm/dL 6.3-8.2 L ALBUMIN (test code = ALB) 2.7 gm/dL 3.4-4.8 L CALCIUM (test code = CA) 8.4 mg/dL 8.4-10.2 N BILIRUBIN TOTAL (test code = 0.5 mg/dL 0.2-1.0 N BILT) SGOT/AST (test code = AST) 12 units/L 15-37 L SGPT/ALT (test code = ALT) 25 units/L 12-78 N ALKALINE PHOSPHATASE TOTAL (test 140 units/L 46-116 H code = ALKP) UR PROTEIN/CREATININE [id number] 17:49:00 Test Item Value Reference Range Interpretation Comments UR PROTEIN RANDOM (test code = 18.4 mg/dL PROTU) UR CREATININE RANDOM (test 112.9 mg/dL code = CREATU) PROTEIN/CREATININE RATIO (test 162.9 mg/gcrea <200 code = P/CRATIO) CBC W/AUTO [id number] 17:24:00 Test Item Value Reference Range Interpretation Comments WHITE BLOOD CELL (test code = WBC) 8.0 K/mm3 6.5-12.3 N RED BLOOD CELL (test code = RBC) 3.42 M/mm3 3.51-4.69 L HEMOGLOBIN (test code = HGB) 10.7 g/dL 10.1-13.8 N HEMATOCRIT (test code = HCT) 31.8 % 32.5-41.8 L MEAN CELL VOLUME (test code = MCV) 93.0 fL 84.6-96.6 N MEAN CELL HGB (test code = MCH) 31.3 pg 27.3-33.9 N MEAN CELL HGB CONCETRATION (test 33.6 gm/dL 32.0-34.2 N code = MCHC) RED CELL DISTRIBUTION WIDTH (test 13.4 % 12.2-16.3 N code = RDW) PLATELET COUNT (test code = PLT) 189 K/mm3 134-363 N MEAN PLATELET VOLUME (test code = 11.6 fL 9.2-12.7 N MPV) NEUTROPHIL % (test code = NT%) 67.2 % 57.9-77.3 N LYMPHOCYTE % (test code = LY%) 21.9 % 14.5-29.7 N MONOCYTE % (test code = MO%) 9.7 % 3.6-10.2 N EOSINOPHIL % (test code = EO%) 0.6 % 0.0-3.0 N BASOPHIL % (test code = BA%) 0.2 % 0.1-0.9 N NEUTROPHIL # (test code = NT#) 5.4 K/mm3 LYMPHOCYTE # (test code = LY#) 1.8 K/mm3 MONOCYTE # (test code = MO#) 0.8 K/mm3 EOSINOPHIL # (test code = EO#) 0.05 K/mm3 BASOPHIL # (test code = BA#) 0.0 K/mm3 RBC MORPHOLOGY REQUIRED (test code NORMAL NORMAL = RBCM) PLATELET MORPHOLOGY REQUIRED (test NORMAL NORMAL code = PLTMR) UR PROTEIN/CREATININE [id number] 18:15:00 Test Item Value Reference Range Interpretation Comments UR PROTEIN RANDOM (test code = 21.9 mg/dL PROTU) UR CREATININE RANDOM (test 138.9 mg/dL code = CREATU) PROTEIN/CREATININE RATIO (test 157.6 mg/gcrea <200 code = P/CRATIO) COMPREHENSIVE METABOLIC [id number] 17:40:00 Test Item Value Reference Range Interpretation Comments SODIUM (test code = NA) 141 mEq/L 135-145 N POTASSIUM (test code = K) 3.5 mEq/L 3.5-5.0 N CHLORIDE (test code = CL) 106 mEq/L 100-115 N CARBON DIOXIDE (test code = CO2) 23 mEq/L 22-31 N ANION GAP (test code = GAP) 15.30 10-20 N GLUCOSE (test code = GLU) 119 mg/dL 65-110 H BLOOD UREA NITROGEN (test code = 5 mg/dL 7-18 L BUN) GLOMERULAR FILTRATION RATE (test 101 ml/min >60 N code = GFR) CREATININE (test code = CREAT) 0.7 mg/dL 0.5-1.0 N TOTAL PROTEIN (test code = PROT) 5.5 gm/dL 6.3-8.2 L ALBUMIN (test code = ALB) 2.7 gm/dL 3.4-4.8 L CALCIUM (test code = CA) 8.4 mg/dL 8.4-10.2 N BILIRUBIN TOTAL (test code = 0.6 mg/dL 0.2-1.0 N BILT) SGOT/AST (test code = AST) 19 units/L 15-37 N SGPT/ALT (test code = ALT) 28 units/L 12-78 N ALKALINE PHOSPHATASE TOTAL (test 134 units/L 46-116 H code = ALKP) URIC [id number] 17:40:00 Test Item Value Reference Range Interpretation Comments URIC ACID (test code = URIC) 4.4 mg/dL 2.6-6.0 N LACTIC DEHYDROGENASE(LDH)2021-04-06 17:40:00 Test Item Value Reference Range Interpretation Comments LACTIC DEHYDROGENASE(LDH) (test 192 units/L 81-234 N code = LDH) CBC W/AUTO [id number] 17:02:00 Test Item Value Reference Range Interpretation Comments WHITE BLOOD CELL (test code = WBC) 10.1 K/mm3 6.5-12.3 N RED BLOOD CELL (test code = RBC) 3.46 M/mm3 3.51-4.69 L HEMOGLOBIN (test code = HGB) 10.8 g/dL 10.1-13.8 N HEMATOCRIT (test code = HCT) 31.3 % 32.5-41.8 L MEAN CELL VOLUME (test code = MCV) 90.5 fL 84.6-96.6 N MEAN CELL HGB (test code = MCH) 31.2 pg 27.3-33.9 N MEAN CELL HGB CONCETRATION (test 34.5 gm/dL 32.0-34.2 H code = MCHC) RED CELL DISTRIBUTION WIDTH (test 13.2 % 12.2-16.3 N code = RDW) PLATELET COUNT (test code = PLT) 210 K/mm3 134-363 N MEAN PLATELET VOLUME (test code = 12.0 fL 9.2-12.7 N MPV) NEUTROPHIL % (test code = NT%) 76.5 % 57.9-77.3 N LYMPHOCYTE % (test code = LY%) 13.7 % 14.5-29.7 L MONOCYTE % (test code = MO%) 8.9 % 3.6-10.2 N EOSINOPHIL % (test code = EO%) 0.3 % 0.0-3.0 N BASOPHIL % (test code = BA%) 0.3 % 0.1-0.9 N NEUTROPHIL # (test code = NT#) 7.7 K/mm3 LYMPHOCYTE # (test code = LY#) 1.4 K/mm3 MONOCYTE # (test code = MO#) 0.9 K/mm3 EOSINOPHIL # (test code = EO#) 0.03 K/mm3 BASOPHIL # (test code = BA#) 0.0 K/mm3 RBC MORPHOLOGY REQUIRED (test code NORMAL NORMAL = RBCM) PLATELET MORPHOLOGY REQUIRED (test NORMAL NORMAL code = PLTMR) COMPREHENSIVE METABOLIC [id number] 22:17:00 Test Item Value Reference Range Interpretation Comments SODIUM (test code = NA) 141 mEq/L 135-145 N POTASSIUM (test code = K) 4.1 mEq/L 3.5-5.0 N CHLORIDE (test code = CL) 107 mEq/L 100-115 N CARBON DIOXIDE (test code = CO2) 25 mEq/L 22-31 N ANION GAP (test code = GAP) 13.30 10-20 N GLUCOSE (test code = GLU) 81 mg/dL 65-110 N BLOOD UREA NITROGEN (test code = 6 mg/dL 7-18 L BUN) GLOMERULAR FILTRATION RATE (test 121 ml/min >60 N code = GFR) CREATININE (test code = CREAT) 0.6 mg/dL 0.5-1.0 N TOTAL PROTEIN (test code = PROT) 6.2 gm/dL 6.3-8.2 L ALBUMIN (test code = ALB) 3.1 gm/dL 3.4-4.8 L CALCIUM (test code = CA) 8.7 mg/dL 8.4-10.2 N BILIRUBIN TOTAL (test code = BILT) 0.4 mg/dL 0.2-1.0 N SGOT/AST (test code = AST) 12 units/L 15-37 L SGPT/ALT (test code = ALT) 18 units/L 12-78 N ALKALINE PHOSPHATASE TOTAL (test 74 units/L 46-116 N code = ALKP) CBC W/AUTO [id number] 20:52:00 Test Item Value Reference Range Interpretation Comments WHITE BLOOD CELL (test code = WBC) 11.9 K/mm3 6.5-12.3 N RED BLOOD CELL (test code = RBC) 3.66 M/mm3 3.51-4.69 N HEMOGLOBIN (test code = HGB) 11.5 g/dL 10.1-13.8 N HEMATOCRIT (test code = HCT) 33.6 % 32.5-41.8 N MEAN CELL VOLUME (test code = MCV) 91.8 fL 84.6-96.6 N MEAN CELL HGB (test code = MCH) 31.4 pg 27.3-33.9 N MEAN CELL HGB CONCETRATION (test 34.2 gm/dL 32.0-34.2 N code = MCHC) RED CELL DISTRIBUTION WIDTH (test 12.9 % 12.2-16.3 N code = RDW) PLATELET COUNT (test code = PLT) 224 K/mm3 134-363 N MEAN PLATELET VOLUME (test code = 10.2 fL 9.2-12.7 N MPV) NEUTROPHIL % (test code = NT%) 73.9 % 57.9-77.3 N LYMPHOCYTE % (test code = LY%) 17.4 % 14.5-29.7 N MONOCYTE % (test code = MO%) 5.9 % 3.6-10.2 N EOSINOPHIL % (test code = EO%) 1.8 % 0.0-3.0 N BASOPHIL % (test code = BA%) 0.3 % 0.1-0.9 N NEUTROPHIL # (test code = NT#) 8.8 K/mm3 LYMPHOCYTE # (test code = LY#) 2.1 K/mm3 MONOCYTE # (test code = MO#) 0.7 K/mm3 EOSINOPHIL # (test code = EO#) 0.22 K/mm3 BASOPHIL # (test code = BA#) 0.0 K/mm3 UA RFLX MICR CULT IF [id number] 14:45:00 Test Item Value Reference Range Interpretation Comments UA COLOR (test code = COLU) YELLOW YELLOW UA APPEARANCE (test code = CLOUDY CLEAR A APPU) UA GLUCOSE DIPSTICK (test code NEGATIVE NEG = DGLUU) UA BILIRUBIN DIPSTICK (test NEGATIVE NEG code = BILU) UA KETONE DIPSTICK (test code 1+ NEG A = KETU) UA SPECIFIC GRAVITY (test code 1.012 1.001-1.035 N = SGU) UA BLOOD DIPSTICK (test code = NEG NEG DICK) UA PH DIPSTICK (test code = 5.0 5-9 CHRIS) UA PROTEIN DIPSTICK (test code NEGATIVE NEG = PROU) UA UROBILINIOGEN DIPSTICK NEGATIVE mg/dL NEG (test code = URO) UA NITRITE DIPSTICK (test code NEG NEG = ROSLYN) UA LEUKOCYTE ESTERASE DIPSTICK 1+ NEG A (test code = LEUU) UA WBC (test code = WBCU) 6-10 #/hpf NONE SEEN A UA RBC (test code = RBCU) 0-2 #/hpf NONE SEEN UA EPITHELIAL CELLS (test code MANY #/HPF RARE-FEW A = EPIU) UA BACTERIA (test code = BACU) MODERATE /HPF RARE-FEW A UA MUCUS (test code = MUCU) 1+ NONE SEEN Indication for culture: Suprapubic PainSpecimen Description: CLEAN CATCH COMPREHENSIVE METABOLIC [id number] 14:08:00 Test Item Value Reference Range Interpretation Comments SODIUM (test code = NA) 142 mEq/L 135-145 N POTASSIUM (test code = K) 4.3 mEq/L 3.5-5.0 N CHLORIDE (test code = CL) 109 mEq/L 100-115 N CARBON DIOXIDE (test code = CO2) 24 mEq/L 22-31 N ANION GAP (test code = GAP) 13.80 10-20 N GLUCOSE (test code = GLU) 84 mg/dL 65-110 N BLOOD UREA NITROGEN (test code = 5 mg/dL 7-18 L BUN) GLOMERULAR FILTRATION RATE (test 121 ml/min >60 N code = GFR) CREATININE (test code = CREAT) 0.6 mg/dL 0.5-1.0 N TOTAL PROTEIN (test code = PROT) 6.6 gm/dL 6.3-8.2 N ALBUMIN (test code = ALB) 3.5 gm/dL 3.4-4.8 N CALCIUM (test code = CA) 8.5 mg/dL 8.4-10.2 N BILIRUBIN TOTAL (test code = BILT) 0.8 mg/dL 0.2-1.0 N SGOT/AST (test code = AST) 17 units/L 15-37 N SGPT/ALT (test code = ALT) 25 units/L 12-78 N ALKALINE PHOSPHATASE TOTAL (test 51 units/L 46-116 N code = ALKP) CBC W/AUTO [id number] 13:32:00 Test Item Value Reference Range Interpretation Comments WHITE BLOOD CELL (test code = WBC) 8.7 K/mm3 6.5-12.3 N RED BLOOD CELL (test code = RBC) 4.13 M/mm3 3.51-4.69 N HEMOGLOBIN (test code = HGB) 12.9 g/dL 10.1-13.8 N HEMATOCRIT (test code = HCT) 36.9 % 32.5-41.8 N MEAN CELL VOLUME (test code = MCV) 89.3 fL 84.6-96.6 N MEAN CELL HGB (test code = MCH) 31.2 pg 27.3-33.9 N MEAN CELL HGB CONCETRATION (test 35.0 gm/dL 32.0-34.2 H code = MCHC) RED CELL DISTRIBUTION WIDTH (test 12.7 % 12.2-16.3 N code = RDW) PLATELET COUNT (test code = PLT) 236 K/mm3 134-363 N MEAN PLATELET VOLUME (test code = 10.5 fL 9.2-12.7 N MPV) NEUTROPHIL % (test code = NT%) 73.3 % 57.9-77.3 N LYMPHOCYTE % (test code = LY%) 17.6 % 14.5-29.7 N MONOCYTE % (test code = MO%) 7.9 % 3.6-10.2 N EOSINOPHIL % (test code = EO%) 0.5 % 0.0-3.0 N BASOPHIL % (test code = BA%) 0.2 % 0.1-0.9 N NEUTROPHIL # (test code = NT#) 6.4 K/mm3 LYMPHOCYTE # (test code = LY#) 1.5 K/mm3 MONOCYTE # (test code = MO#) 0.7 K/mm3 EOSINOPHIL # (test code = EO#) 0.04 K/mm3 BASOPHIL # (test code = BA#) 0.0 K/mm3 RBC MORPHOLOGY REQUIRED (test code NORMAL NORMAL = RBCM) PLATELET MORPHOLOGY REQUIRED (test NORMAL NORMAL code = PLTMR) Right knee intrarticular steroid [id number] 23:20:00Navneet Bermudez MD 07/31/2020 9:50 PMRight knee intrarticular steroid injectionPerformed by:Navneet Bermudez MDAuthorized by: Navneet Bermudez MD Consent given by: PatientTimeout: prior to procedure the correct patient, procedure, and site was verified Indications: Joint swelling and painLocation: KneeSite: R kneePrep: patient was prepped and draped in usual sterile fashion Ultrasound guided?: No Needle size (right): 22 GRight side approach: AnterolateralRight side medications: 10 mL bupivacaine (PF) 0.25 % (2.5 mg/mL); 80 mg methylPREDNISolone acetate 40 mg/mL; 10 mL lidocaine 10 mg/mL (1 %) (2 ml 40 mg/ml methylprednisolone, 4 ml 1% Lidocaine and 4 ml 0.5% Bupivicaineused in actual injection)Patient tolerance (right): Patient tolerated the procedure well with no immediate complicationsEastern [facility], [facility]odi[facility] K[facility] Right Wo [id number] 19:27:14EXAMINATION: MRI KNEE WO CONTRAST RIGHT CLINICAL HISTORY: 24 years Female M23.91 Unspecified internal derangement of right knee, pain TECHNIQUE: Multiplanar multisequence MR imaging of the right kneewas performed without contrast. COMPARISON: MR dated 02/13/2020 and x-ray dated 06/20/2020 FINDINGS:Cruciate ligaments: Intact. Menisci: Intact. Collateral ligaments: Intact. Bone marrow: No focal abnormality. Articular cartilage: There is moderate chondromalacia involving the patella with chondral fissures and diminished articular cartilage involving the lateral patellar facet. The articular cartilage is otherwise unremarkable. Effusion: Tiny joint effusion. Thin medial patella plica. Extensor mechanism: There is mild patella alto with a Insall Salvati ratio of 1.5. Mild lateralization of the tibial tubercle is present with a TT-TG distance of 15 mm. There is mild lateral subluxation of the patella. Signal within the infrapatellar tendon is within normal limits. The quadriceps tendon is unremarkable. There is edema within the superolateral aspect of Hoffa's fat. Soft tissues: Soft tissues are otherwise unremarkable. 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 Thin medial patella plica.4.No evidence of cruciate ligament, meniscal, or collateral ligament injury. [facility]- [id number] Interface, Radiology Results Incoming - 06/23/2020 1:30 PM CST EXAMINATION: MRI KNEE WO CONTRAST RIGHTCLINICAL HISTORY: 24 years Female M23.91 Unspecified internal derangement of right knee, painTECHNIQUE: Multiplanar multisequence MR imaging of the right knee was performed without contrast.COMPARISON: MR dated 02/13/2020 and x-ray dated 06/20/2020FINDINGS:Cruciate ligaments: Intact.Menisci: Intact.Collateral ligaments: Intact.Bone marrow: No focal abnormality.Articular cartilage: There is moderate chondromalacia involving the patella with chondral fissures and diminished articular cartilage involving the lateral patellar facet. The articular cartilage is otherwise unremarkable.Effusion: Tiny joint effusion. Thin medial patella plica.Extensor mechanism:There is mild patella alto with a Insall Salvati ratio of 1.5. Mild lateralization of the tibial tube rcle is present with a TT-TG distance of 15 mm. There is mild lateral subluxation of the patella. Signal within the infrapatellar tendon is within normal limits. The quadriceps tendon is unremarkable. 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 Thin medial patella plica.4.No evidence of cruciate ligament, meniscal, or collateral ligament injury.[facility]-[id number]
[2021-08-19] MEDS ORDERED: MORPHINE 4 MG/ML SYR ONE (23:32)
[2021-08-19] MEDS ORDERED: NA CHLORIDE 0.9% 1,000 ML ONE (23:32)
[2021-08-19] MEDS ORDERED: ONDANSETRON 4 MG/2 ML VIAL ONE (23:32)
[2021-08-19] MEDS ORDERED: NA CHLORIDE 0.9% 100 ML IV ONE (23:32)
[2021-08-19] MEDS ORDERED: FAMOTIDINE 20 MG/2 ML VIAL IV ONE (23:32)
[2021-08-19] MEDS ORDERED: PIPERACIL/TAZO 3.375 GM VIAL IV ONE (23:33)
[2021-08-20] LABS: Urine Blood Negative (Negative); Urine Glucose Negative (Negative); Urine Protein Trace (Negative); Urine Specific Gravity >=1.030 (1.005-1.030); Urine pH 5.5 (5.0-7.0)
--- NOTE | 2021-08-20 00:14 | ER ---
Nurse's Notes [facility] Name: Miracle Stone Age: 25 yrs Sex: Female : 1995 Arrival Date: 08/19/2021 Time: 21:34 Bed 24 Private MD: Diagnosis: Cholecystitis, unspecified;Other cholelithiasis with obstruction;Vomiting;Abdominal tenderness Presentation: 08/20 00:02 Chief complaint: Patient states: "I am suppose to have surgery on Tuesday with Dr. nate Bowling to get my gallbladder removed but the pain is just too bad. I have been dealing with this pain for the past month but we only found out today that it was my gallbladder". Coronavirus screen: Vaccine status: Patient reports being unvaccinated. Ebola Screen: Patient negative for fever greater than or equal to 101.5 degrees Fahrenheit, and additional compatible Ebola Virus Disease symptoms Patient denies exposure to infectious person. Patient denies travel to an Ebola-affected area in the 21 days before illness onset. Initial Sepsis Screen: Does the patient meet any 2 criteria? No. Patient's initial sepsis screen is negative. Does the patient have a suspected source of infection? Yes: Acute abdominal pain. Risk Assessment: Do you want to hurt yourself or someone else? Patient reports no desire to harm self or others. Onset of symptoms was August 19, 2021 at 15:00. 00:02 Method Of Arrival: Ambulatory tw5 00:02 Acuity: MARY LOU 3 tw5 Triage Assessment: 00:04 General: Appears uncomfortable, well groomed, Behavior is calm, cooperative, tw5 appropriate for age. Pain: Complains of pain in epigastric area and right upper quadrant Pain currently is 10 out of 10 on a pain scale. Quality of pain is described as sharp. GI: Reports lower abdominal pain, nausea. Historical: - Allergies: 00:04 Tramadol HCl; tw5 - Home Meds: 00:04 None [Active]; tw5 - PMHx: 00:04 None; tw5 - PSHx: 00:04 section; Appendectomy; knee surgery-right; plastic surgery-face; ovarin cyst tw5 removal; - Immunization history:: Flu vaccine is not up to date. - Social history:: Smoking status: Patient denies any tobacco usage or history of. Screenin:06 Abuse screen: Denies threats or abuse. Denies injuries from another. Nutritional tw5 screening: No deficits noted. Tuberculosis screening: No symptoms or risk factors identified. Fall Risk IV access (20 points). Assessment: 00:09 General: Appears uncomfortable, Behavior is calm, cooperative, agitated. Pain: tw5 Complains of pain in epigastric area and right upper quadrant Pain currently is 5 out of 10 on a pain scale. Neuro: No deficits noted. Cardiovascular: Heart tones S1 S2 present Capillary refill < 3 seconds is brisk in bilateral fingers. Respiratory: Airway is patent Respiratory effort is even, Respiratory pattern is regular. GI: Bowel sounds present X 4 quads. Abd is soft X 4 quads Abdomen is tender to palpation in epigastric area and right upper quadrant. : Urine is. Derm: Skin is intact, Skin is pink, warm \\T\\ dry. 04:23 Reassessment: Patient states feeling better. Patient states symptoms have improved. 5 Vital Signs: 00:02 BP 129 / 79; Pulse 51; Resp 14; Temp 98.4(O); Pulse Ox 100% on R/A; Weight 89.81 kg; tw5 Height 5 ft. 7 in. (170.18 cm); Pain 10/10; 00:11 Pain 5/10; tw5 04:23 BP 116 / 75; Pulse 52; Resp 18; Pulse Ox 100% on R/A; Pain 6/10; tw5 00:02 Body Mass Index 31.01 (89.81 kg, 170.18 cm) tw5 ED Course: 08/19 21:34 Patient arrived in ED. mr 21:38 George Davies MD is Attending Physician. [facility] 23:31 Evy Hubbard is Primary Nurse. 08/20 00:01 SARS-COV-2 RT PCR (Document "Date of Onset" if Symptomatic) Sent. 00: CBC with Diff Sent. 00: CMP Sent. 00: Lipase Sent. 00:04 Triage completed. 00:04 Arm band placed on right wrist. Patient placed in an exam room, on a stretcher. tw5 00:06 Initial lab(s) drawn, Repeat lab(s) drawn. sent to lab. Urine collected: clean catch 5 specimen, moris colored, Amount Voided: 150mL COVID swab sent to lab. Inserted saline lock: 20 gauge in right antecubital area, using aseptic technique. Blood collected. 00:06 Patient has correct armband on for positive identification. Placed in gown. Bed in low tw5 position. Call light in reach. Side rails up X 1. Adult w/ patient. vehicle monitor technician on. Pulse ox on. NIBP on. Door closed. Noise minimized. Lights dimmed. Moved to private room. Warm blanket given. Verbal reassurance given. 00:12 Jason Bowling MD is Hospitalizing Provider. [facility] 00:55 SARS-COV-2 RT PCR (Document "Date of Onset" if Symptomatic) Sent. tw 04:23 No provider procedures requiring assistance completed. Patient transferred, IV remains tw5 in place. Administered Medications: 00:01 Drug: NS 0.9% 1000 ml Route: IV; Rate: 1 bolus; Site: right antecubital; tw 00:12 Follow up: Response: No adverse reaction; IV Status: Completed infusion; IV Intake: tw5 1000ml 00:01 Drug: Pepcid (famotidine) 20 mg Route: IVP; Site: right antecubital; 00:12 Follow up: Response: No adverse reaction 00:01 Drug: Zofran (Ondansetron) 4 mg Route: IVP; Site: right antecubital; tw 00:12 Follow up: Response: No adverse reaction 00:02 Drug: morphine 4 mg Route: IVP; Site: right antecubital; tw 00:11 Follow up: Pain 5/10 Adult; Response: No adverse reaction; Pain is decreased 00:02 Drug: Zosyn (piperacillin-tazobactam) 3.375 grams Route: IVPB; Infused Over: 60 mins; Site: right antecubital; 04:23 Follow up: Response: No adverse reaction; IV Status: Completed infusion; IV Intake: tw5 100ml 00:54 Drug: NS 0.9% 1000 ml Route: IV; Rate: 125 ml/hr; Site: right antecubital; tw 04:23 Follow up: IV Status: Infusion continued upon transfer tw5 00:54 Drug: Dilaudid (HYDROmorphone) 1 mg Route: IVP; Site: right antecubital; tw 01:50 Follow up: Response: No adverse reaction; Pain is decreased; RASS: Alert and Calm (0) 00:54 Drug: Zofran (Ondansetron) 4 mg Route: IVP; Site: right antecubital; 04:22 Follow up: Response: No adverse reaction 5 00:55 Drug: NS 0.9% 500 ml Route: IV; Rate: bolus; Site: right antecubital; 04:23 Follow up: Response: No adverse reaction; IV Status: Completed infusion; IV Intake: tw5 500ml 04:22 Drug: Dilaudid (HYDROmorphone) 1 mg Route: IVP; Site: right antecubital; 04:22 Follow up: Response: No adverse reaction; Medication administered at discharge.; RASS: Alert and Calm (0) Intake: 00:12 IV: 1000ml; Total: 1000ml. 04:23 IV: 500ml; Total: 1500ml. 04:23 IV: 100ml; Total: 1600ml. Outcome: 00:13 Decision to Hospitalize by Provider. abrahan 02:43 Transferred to [facility], Note: room 1655. called 02:50 Transferred Note: Report called to [facility] 04:23 Transferred by ground EMS Transfer form completed. 04:23 Condition: improved 04:24 Patient left the ED. Signatures: George Davies MD MD cha Rivera, Addie damon StevieEvy 5
--- NOTE | 2021-08-20 00:14 | EDPHYS ---
Physician Documentation [facility] Name: Miracle Stone Age: 25 yrs Sex: Female : 1995 Arrival Date: 08/19/2021 Time: 21:34 Bed 24 Private MD: GUY Physician George Davies HPI: 08/20 00:08 This 25 yrs old Female presents to ER via Ambulatory with complaints of abrahan Abdominal Pain, Vomiting. 00:08 The patient presents to the emergency department with nausea, vomiting, that is abrahan continuous. Onset: The symptoms/episode began/occurred 1 day(s) ago. Possible causes: gallbladder. The symptoms are aggravated by pressure, food , The symptoms are alleviated by nothing. Associated signs and symptoms: The patient has no apparent associated signs or symptoms. Severity of symptoms: At their worst the symptoms were mild moderate in the emergency department the symptoms are unchanged. The patient has experienced similar episodes in the past, multiple times. Historical: - Allergies: 00:04 Tramadol HCl; tw5 - Home Meds: 00:04 None [Active]; tw5 - PMHx: 00:04 None; tw5 - PSHx: 00:04 section; Appendectomy; knee surgery-right; plastic surgery-face; ovarin cyst tw5 removal; - Immunization history:: Flu vaccine is not up to date. - Social history:: Smoking status: Patient denies any tobacco usage or history of. ROS: 00:10 Constitutional: Negative for fever, chills, and weight loss, Eyes: Negative for injury, abrahan pain, redness, and discharge, ENT: Negative for injury, pain, and discharge, Neck: Negative for injury, pain, and swelling, Cardiovascular: Negative for chest pain, palpitations, and edema, Respiratory: Negative for shortness of breath, cough, wheezing, and pleuritic chest pain, Back: Negative for injury and pain, : Negative for injury, bleeding, discharge, and swelling, MS/Extremity: Negative for injury and deformity, Skin: Negative for injury, rash, and discoloration, Neuro: Negative for headache, weakness, numbness, tingling, and seizure, Psych: Negative for depression, anxiety, suicide ideation, homicidal ideation, and hallucinations, Allergy/Immunology: Negative for hives, rash, and allergies, Endocrine: Negative for neck swelling, polydipsia, polyuria, polyphagia, and marked weight changes, Hematologic/Lymphatic: Negative for swollen nodes, abnormal bleeding, and unusual bruising. 00:10 Abdomen/GI: Positive for abdominal pain, nausea and vomiting, abdominal cramps, of the right upper quadrant. Exam: 00:10 Constitutional: This is a well developed, well nourished patient who is awake, alert, abrahan and in no acute distress. Head/Face: Normocephalic, atraumatic. Eyes: Pupils equal round and reactive to light, extra-ocular motions intact. Lids and lashes normal. Conjunctiva and sclera are non-icteric and not injected. Cornea within normal limits. Periorbital areas with no swelling, redness, or edema. ENT: Nares patent. No nasal discharge, no septal abnormalities noted. Tympanic membranes are normal and external auditory canals are clear. Oropharynx with no redness, swelling, or masses, exudates, or evidence of obstruction, uvula midline. Mucous membranes moist. Neck: Trachea midline, no thyromegaly or masses palpated, and no cervical lymphadenopathy. Supple, full range of motion without nuchal rigidity, or vertebral point tenderness. No Meningismus. Chest/axilla: Normal chest wall appearance and motion. Nontender with no deformity. No lesions are appreciated. Cardiovascular: Regular rate and rhythm with a normal S1 and S2. No gallops, murmurs, or rubs. Normal PMI, no JVD. No pulse deficits. Respiratory: Lungs have equal breath sounds bilaterally, clear to auscultation and percussion. No rales, rhonchi or wheezes noted. No increased work of breathing, no retractions or nasal flaring. Back: No spinal tenderness. No costovertebral tenderness. Full range of motion. Female : Normal external genitalia. Skin: Warm, dry with normal turgor. Normal color with no rashes, no lesions, and no evidence of cellulitis. MS/ Extremity: Pulses equal, no cyanosis. Neurovascular intact. Full, normal range of motion. Neuro: Awake and alert, GCS 15, oriented to person, place, time, and situation. Cranial nerves II-XII grossly intact. Motor strength 5/5 in all extremities. Sensory grossly intact. Cerebellar exam normal. Normal gait. Psych: Awake, alert, with orientation to person, place and time. Behavior, mood, and affect are within normal limits. 00:10 Abdomen/GI: Inspection: abdomen appears normal, Bowel sounds: normal, Palpation: moderate abdominal tenderness, in the right upper quadrant, Liver: no appreciated palpable abnormalities, Hernia: not appreciated. Vital Signs: 00:02 BP 129 / 79; Pulse 51; Resp 14; Temp 98.4(O); Pulse Ox 100% on R/A; Weight 89.81 kg; tw5 Height 5 ft. 7 in. (170.18 cm); Pain 10/10; 00:11 Pain 5/10; tw5 04:23 BP 116 / 75; Pulse 52; Resp 18; Pulse Ox 100% on R/A; Pain 6/10; tw5 00:02 Body Mass Index 31.01 (89.81 kg, 170.18 cm) tw5 MDM: 08/19 21:38 Patient medically screened. [facility] 08/20 00:11 Differential diagnosis: gastritis, cholecystitis, pancreatitis, diverticulitis, viral abrahan gastroenteritis, gastroenteritis, cholecystitis, Cholelithiasis. Data reviewed: vital signs, nurses notes, lab test result(s), radiologic studies, ultrasound. 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 rate is 51 beats/min, rhythm is regular, Pulse oximetry: on room air is 100 %. Counseling: I had a detailed discussion with the patient and/or guardian regarding: the historical points, exam findings, and any diagnostic results supporting the discharge/admit diagnosis, lab results, radiology results. 08/19 21:40 Order name: CBC with Diff; Complete Time: 00:51 [facility] 08/19 21:40 Order name: CMP; Complete Time: 00:51 [facility] 08/19 21:40 Order name: Lipase; Complete Time: 00:51 [facility] 08/19 21:40 Order name: SARS-COV-2 RT PCR (Document "Date of Onset" if Symptomatic); Complete Time: [facility] 08/20 00:00 Order name: Urine Dipstick-Ancillary; Complete Time: 00:07 [facility] 08/19 21:40 Order name: IV Saline Lock; Complete Time: 00:01 [facility] 08/19 21:40 Order name: Labs collected and sent; Complete Time: 00: [facility] 08/19 21:40 Order name: Urine Dipstick-Ancillary (obtain specimen); Complete Time: 00:01 [facility] 08/19 21:40 Order name: Urine Test (obtain specimen); Complete Time: : [facility] Administered Medications: 00:01 Drug: NS 0.9% 1000 ml Route: IV; Rate: 1 bolus; Site: right antecubital; 00:12 Follow up: Response: No adverse reaction; IV Status: Completed infusion; IV Intake: tw5 1000ml 00:01 Drug: Pepcid (famotidine) 20 mg Route: IVP; Site: right antecubital; 00:12 Follow up: Response: No adverse reaction 00:01 Drug: Zofran (Ondansetron) 4 mg Route: IVP; Site: right antecubital; 00:12 Follow up: Response: No adverse reaction 00:02 Drug: morphine 4 mg Route: IVP; Site: right antecubital; 00:11 Follow up: Pain 5/10 Adult; Response: No adverse reaction; Pain is decreased 00:02 Drug: Zosyn (piperacillin-tazobactam) 3.375 grams Route: IVPB; Infused Over: 60 mins; Site: right antecubital; 04:23 Follow up: Response: No adverse reaction; IV Status: Completed infusion; IV Intake: 100ml 00:54 Drug: NS 0.9% 1000 ml Route: IV; Rate: 125 ml/hr; Site: right antecubital; 04:23 Follow up: IV Status: Infusion continued upon transfer 00:54 Drug: Dilaudid (HYDROmorphone) 1 mg Route: IVP; Site: right antecubital; 01:50 Follow up: Response: No adverse reaction; Pain is decreased; RASS: Alert and Calm (0) 00:54 Drug: Zofran (Ondansetron) 4 mg Route: IVP; Site: right antecubital; 04:22 Follow up: Response: No adverse reaction 00:55 Drug: NS 0.9% 500 ml Route: IV; Rate: bolus; Site: right antecubital; 04:23 Follow up: Response: No adverse reaction; IV Status: Completed infusion; IV Intake: tw5 500ml 04:22 Drug: Dilaudid (HYDROmorphone) 1 mg Route: IVP; Site: right antecubital; tw5 04:22 Follow up: Response: No adverse reaction; Medication administered at discharge.; RASS: tw5 Alert and Calm (0) Disposition Summary: 08/20/21 00:13 Hospitalization Ordered Hospitalization Status: Observation abrahan Provider: Jason Bowling cha Condition: Stable abrahan Problem: new abrahan Symptoms: have improved abrahan Bed/Room Type: Standard [facility] Location: [facility] ER HOLD(08/20/21 00:43) eb1 Room Assignment: ERHOLD-(08/20/21 00:43) eb1 Diagnosis - Cholecystitis, unspecified abrahan - Other cholelithiasis with obstruction abrahan - Vomiting abrahan - Abdominal tenderness abrahan Forms: - Medication Reconciliation Form abrahan - SBAR form abrahan Signatures: Dispatcher [employer] EDMS George Davies MD MD cha Basinger, Emily RN RN eb1 Evy Hubbard tw5 Corrections: (The following items were deleted from the chart) 00:43 00:13 Telemetry/MedSurg (observation) abrahan eb1 00:43 00:13 [facility]
[2021-08-20 00:21] LABS: Hematocrit 38.7 % (36.0-45.0); Lymphocytes % 9.9 % (15.3-44.8); MPV 8.6 fL (7.6-11.3); RBC Red Blood Cell Count 4.54 M/uL (3.86-4.86)
[2021-08-20 00:40] LABS: Albumin 4.3 g/dL (3.4-5.0); Bilirubin Total 4.1 mg/dL (0.2-1.0); Potassium 3.9 mmol/L (3.5-5.1); Protein, Total 7.7 g/dL (6.4-8.2)
[2021-08-20] MEDS ORDERED: NA CHLORIDE 0.9% 1,000 ML ONE (00:44)
[2021-08-20] MEDS ORDERED: NA CHLORIDE 0.9% 500 ML ONE (00:44)
[2021-08-20] MEDS ORDERED: ONDANSETRON 4 MG/2 ML VIAL ONE (00:44)
[2021-08-20] MEDS ORDERED: HYDROMORPHONE HCL 0.5 MG/0.5 ML INJ ONE ×2 (00:44→03:30)
[2021-08-20] MEDS ORDERED: ONDANSETRON 4 MG/2 ML VIAL IV PRN (00:52)
[2021-08-20] MEDS ORDERED: MORPHINE 4 MG/ML SYR IV PRN (00:52)
[2021-08-20] MEDS ORDERED: ACETAMINOPHEN 325 MG TABLET PO PRN (00:52)
[2021-08-20 00:59] VITALS: BMI 31.0
[2021-08-20] MEDS ORDERED: PIPER TAZO 3.375 GM in NA CHLORIDE 0.9% 100 ML IV SCH (01:00)
[2021-08-20] MEDS ORDERED: D5 0.45 NS 1,000 ML IV SCH (01:00)
[2021-08-20 06:09] VITALS: TEMP 98.4
[2021-08-20 06:11] VITALS: BP 116/75; O2SAT 100
[2021-08-20] MEDS ORDERED: FAMOTIDINE 20 MG/2 ML VIAL IV SCH (09:00)
== END 2021-08-20 04:30 | disposition short-term general hospital (02) ==
LOC: ER 21:32 → ERHOLD 08-20 00:16
PROVIDERS: ADMIT Surgery; ATTEND Surgery
DX: K80.11 Calculus of gallbladder with chronic cholecystitis with obstruction (principal); Z88.6 Allergy status to analgesic agent; Z20.822 Contact with and (suspected) exposure to COVID-19
CPT/HCPCS: 96365; 85025; 36415; 81003; 83690; 80053; 96375; 99285; 96366; U0003; J2543; J1170 ×2; J7040; J7030 ×2; J2405 ×2; J3490; G0378 ×2